=== PATIENT | female | born 1935 | race Caucasian/White ===

== ENCOUNTER 2016-10-20 06:52 | Emergency (ER) | payer MEDICARE, BC ==
[2016-10-20 07:26] VITALS: BP 123/79
[2016-10-20] MEDS ORDERED: predniSONE TAB* 20 MG PO ONE (07:28)
--- NOTE | 2016-10-20 08:23 | ED ---
pedro luis Quinonez Timothy, scribed for Jeffery Cyr MD on 10/20/16 at 0719 . Skin Complaint - HPI Summary HPI Summary: Mehreen Alan is an 81 yo female presenting to [facility] with diffuse pruritic rash since 219910/19/16 and feels like it is a result of the augmentin course she is taking and has been taking it TID for the past 10 days. She states she had difficulty sleeping and is nauseous, but denies any SOB. Her MHx includes Afib, ulcer, arthritis, osteopenia, bursitis bilateral hips and shoulder, hepatitis as a child, pernicious anemia, MRSA. She is allergic to tylenol, scopolamine, molds, and has hay fever. - History of Current Complaint Chief Complaint: EDAllergicReaction Time Seen by Provider: 10/20/16 07:18 Stated Complaint: POSS ALLERGIC REACTION Hx Obtained From: Patient Onset/Duration: Started Hours Ago, Still Present Skin Exposure Onset/Duration: Hours Ago Timing: Constant Onset Severity: Moderate Current Severity: Moderate Pain Intensity: 0 Pain Scale Used: 0-10 Numeric Skin Location: Diffuse Character: Pruritus, Hives Associated Signs & Symptoms: Nausea - Allergy/Home Medications Allergies/Adverse Reactions: Allergies Allergy/AdvReac Type Severity Reaction Status Date / Time Scopolamine Allergy Intermediate Altered Verified 07/01/15 08:37 Mental Status Procaine [From Novocain] Allergy Unknown Unknown Verified 07/01/15 08:37 Reaction Details Acetaminophen [From Tylenol] Allergy Nausea Verified 04/11/15 10:35 PMH/Surg Hx/FS Hx/Imm Hx Endocrine/Hematology History: Reports: Hx Anemia - PERNICIOUS DX 1981 Denies: Hx Diabetes, Hx Thyroid Disease Cardiovascular History: Reports: Other Cardiovascular Problems/Disorders - AFIB WITH EXCESSIVE CAFFEINE Denies: Hx Congestive Heart Failure, Hx Hypertension Respiratory History: Denies: Hx Asthma, Hx Chronic Obstructive Pulmonary Disease (COPD) GI History: Reports: Hx Ulcer - no antinflamatories, only 1 aleve per day History: Denies: Hx Renal Disease Musculoskeletal History: Reports: Hx Arthritis, Hx Bursitis - HX BILAT HIPS AND SHOULDER, Hx Osteoporosis - OSTEOPENIA Sensory History: Reports: Hx Cataracts - BILAT, Hx Contacts or Glasses - GLASSES , Hx Hearing Aid - BILAT Opthamlomology History: Reports: Hx Cataracts - BILAT, Hx Contacts or Glasses - GLASSES - Surgical History Surgery Procedure, Year, and Place: TONSILLECTOMY A CHILD Hx Anesthesia Reactions: No Infectious Disease History: Reports: Hx Hepatitis - as achild, Hx of Known/ Suspected MRSA Denies: Hx Clostridium Difficile, Hx Human Immunodeficiency Virus (HIV), Hx Shingles, Hx Tuberculosis, Hx Known/Suspected VRE, Hx Known/Suspected VRSA, History Other Infectious Disease, Traveled Outside the [place] in Last 30 Days - Family History Known Family History: Positive: Cardiac Disease, Hypertension, Other - breast CA - Social History Alcohol Use: Rare Substance Use Type: Reports: None Smoking Status (MU): Former Smoker Type: Cigarettes Length of Time of Smoking/Using Tobacco: 15 years Have You Smoked in the Last Year: No Review of Systems Constitutional: Negative Eyes: Negative ENT: Negative Cardiovascular: Negative Respiratory: Negative Gastrointestinal: Negative Genitourinary: Negative Musculoskeletal: Negative Positive: Rash - diffuse, pruritic Neurological: Negative Psychological: Normal All Other Systems Reviewed And Are Negative: Yes Physical Exam - Summary Physical Exam Summary: The patient is well-nourished in no acute distress and in no acute pain. The skin is warm and dry and skin color reflects adequate perfusion. Diffuse macular rash on her trunk, arms bilaterally, looks to be hives. HEENT: The head is normocephalic and atraumatic. The pupils are equal and reactive. The conjunctivae are clear and without drainage. Tosis of the left eye. Nares are patent and without drainage. Mouth reveals moist mucous membranes and the throat is without erythema and exudate. The external ears are intact. The ear canals are patent and without drainage. The tympanic membranes are intact. Neck is supple with full range of motion and non-tender. There are no carotid bruits. There is no neck vein distension. No stridor. Respiratory: Chest is non-tender. Lungs are clear to auscultation and breath sounds are symmetrical and equal. no rales, rhonci or wheezes. Cardiovascular: Hear is regular rate and rhythm. There is no murmur or rub auscultated. There is no peripheral edema and pulses are symmetrical and equal. Abdomen: The abdomen is soft and non-tender. There are normal bowel sounds heard in all four quadrants and there is no organomegaly palpated. Musculoskeletal: There is no back pain noted. Extremities are non-tender with full range of motion. There is good capillary refill. There is no peripheral edema or calf tenderness elicited. Neurological: Patient is alert and oriented to person, place and time. The patient has symmetrical motor strength in all four extremities. Cranial nerves are grossly intact. Deep tendon reflexes are symmetrical and equal in all four extremities. Psychiatric: The patient has an appropriate affect and does not exhibit any anxiety or depression. Triage Information Reviewed: Yes Vital Signs On Initial Exam: Initial Vital Signs Temp 98.4 F 10/20/16 07:15 Pulse 84 10/20/16 07:15 Resp 18 10/20/16 07:15 BP 123/79 10/20/16 07:15 Pulse Ox 98 10/20/16 07:15 Vital Signs Reviewed: Yes Diagnostics - Vital Signs Vital Signs Temp Pulse Resp BP Pulse Ox 10/20/16 07:40 98.4 F 82 18 123/79 10/20/16 07:15 98.4 F 84 18 123/79 98 - Laboratory Lab Statement: Any lab studies that have been ordered have been reviewed, and results considered in the medical decision making process. Re-Evaluation - Re-Evaluation First Eval Re-Evaluation Time: 07:30 Change: Unchanged Comment: Pt was given additional recommendations for treatment, as well as advised which medications she should avoid in the future. Course/Dx - Course Assessment/Plan: Mehreen Alan is an 81 yo female presenting to [facility] with a diffuse pruritic rash since 219910/19/16, accompanied by nausea. After clinical examination, she will be discharged home with allergic reaction and appropriate instructions, including a recommendation for domeboro soaks and oatmeal-based soap. - Differential Diagnoses - Skin Complaint Differential Diagnoses: Allergic Reaction - Diagnoses Provider Diagnoses: Allergic reaction caused by a drug Discharge - Discharge Plan Condition: Stable Disposition: HOME Prescriptions: predniSONE TAB* [Deltasone TAB*] 60 mg PO DAILY #12 tab Patient Education Materials: Antibiotic Medication Allergy (ED), Prednisone ( By mouth) Referrals: Citlaly Simmons MD [Primary Care Provider] - 2 Days Additional Instructions: Please follow up with your primary care physician regarding your visit to the emergency department today. It is advised that you avoid amoxicillin in the future. You will not be able to use pepcid due to its effect on your heart. To help relieve your symptoms, we recommend you obtain some domeboro soaks, which are over the counter. Additionally, an oatmeal-based soap may help to alleviate the itching you are experiencing. Return to the emergency department with any new or recurring symptoms The documentation as recorded by the pedro luis chris Timothy accurately reflects the service I personally performed and the decisions made by me, Jeffery Cyr MD.
== END 2016-10-20 07:40 | disposition home or self-care (01) ==
LOC: ED 06:52
DX: L27.0 Generalized skin eruption due to drugs and medicaments taken internally (principal); T36.0X5A Adverse effect of penicillins, initial encounter; X58.XXXA Exposure to other specified factors, initial encounter; Z88.8 Allergy status to other drugs, medicaments and biological substances; I48.0 Paroxysmal atrial fibrillation; Z87.891 Personal history of nicotine dependence; Z86.14 Personal history of Methicillin resistant Staphylococcus aureus infection
CPT/HCPCS: 99282; J7512

== ENCOUNTER 2017-01-25 14:48 | Emergency (ER) | payer MEDICARE, BC ==
[2017-01-25 14:54] VITALS: BP 145/76
--- NOTE | 2017-01-25 16:17 | UC ---
Lola Quinonez Alfonso, scribed for Guido Chaudhary MD on 01/25/17 at 1517 . General HPI - HPI Summary HPI Summary: This patient is an 81 year old F presenting to [facility] with a chief complaint of feeling lousy since one week ago. She states I am wondering if I got a UTI because of how I am feeling. The patient rates the dull pain 1/10 in severity. Symptoms aggravated and alleviated by nothing. Patient reports tiredness, weakness, dizziness (felling off balance), and abdominal discomfort. Patient denies sore throat, dysuria, difficulty in speech, neurological deficits, blood in the stool, and bowel symptoms. She lives at [facility]. She denies taking blood thinning medication. She states this is the worse time of the year for me for allergies. 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 She denies any abdominal PSHx. - History of Current Complaint Chief Complaint: UCGU Stated Complaint: UTI Time Seen by Provider: 01/25/17 15:05 Hx Obtained From: Patient Onset/Duration: Sudden Onset, Lasting Weeks - 1, Still Present Timing: Constant Onset Severity: Mild Current Severity: Mild Pain Intensity: 1 - /10 Character: Dull Aggravating: Nothing. Alleviating: Nothing. Associated Signs & Symptoms: Positive: Other - Patient reports tiredness, weakness, dizziness (felling off balance), and abdominal discomfort. Patient denies sore throat, dysuria, difficulty in speech, neurological deficits, blood in the stool, and bowel symptoms. 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 (10-12 years)" - Surgical History Surgical History: Yes Surgery Procedure, Year, and Place: TONSILLECTOMY A CHILD - Family History Known Family History: Positive: Cardiac Disease, Hypertension, Other - breast CA - Social History Alcohol Use: Rare Substance Use Type: None Smoking Status (MU): Former Smoker Type: Cigarettes Amount Used/How Often: 1ppd Length of Time of Smoking/Using Tobacco: 15 years Have You Smoked in the Last Year: No When Did the Patient Quit Smoking/Using Tobacco: 38 years ago - Immunization History Most Recent Influenza Vaccination: 03/30 Most Recent Pneumonia Vaccination: UTD Review of Systems ENT: Other - Negative sore throat. Gastrointestinal: Abdominal Pain - discomfort, Other - Negative blood in the stool, and bowel symptoms Genitourinary: Other - Negative dysuria Musculoskeletal: Other: - Positive "feeling lousy," tiredness, weakness, dizziness (felling off balance); negative difficulty in speech, neurological deficits All Other Systems Reviewed And Are Negative: Yes Physical Exam Triage Information Reviewed: Yes Appearance: Well-Appearing, No Pain Distress Vital Signs: Initial Vital Signs Temp 98.2 F 01/25/17 14:51 Pulse 72 01/25/17 14:51 Resp 18 01/25/17 14:51 BP 145/76 01/25/17 14:51 Pulse Ox 100 01/25/17 14:51 Vital Signs Reviewed: Yes ENT: Positive: Other: - Hearing aids Neck: Positive: Supple, Nontender Respiratory: Positive: Other: - CTA, breath sounds present Cardiovascular: Positive: RRR Abdomen Description: Positive: Soft, Other: - Minimal suprapubic discomfort Bowel Sounds: Positive: Present Musculoskeletal Exam: Normal Musculoskeletal: Positive: Strength Intact Neurological: Positive: Other: - sensory/motor intact, A&O x3, Left-sided Facial droop and left eyelid lags behind the right eyelid, consistent with a history of bells palsy. Psychological: Positive: Age Appropriate Behavior Skin: Positive: Other - warm, color reflects adequate perfusion, dry Course/Dx - Course Course Of Treatment: MEDICATIONS REVIEWED. PATIENT HAS IVAN'S PALSY BUT, NO NEW NEUROLOGIC DEFICIT. WE DISCUSSED CVA A POSSINBLE CAUSE FOR BEING OFF BALANCE. PATIENT DENIES C/O CVA. AT THIS TIME, WILL TREAT WITH BACTRIM FOR PYURIA. WE DISCUSSED GETTING SEEN AGAIN AND RE EVALUATED IF HER SX WORSENED OR DID NOT IMPROVE. - Differential Dx - Multi-Symptom Provider Diagnoses: UTI, DIZZINESS, HYPERTENSION Discharge - Discharge Plan Condition: Stable Disposition: HOME Prescriptions: Sulfamethox/Trimethoprim DS* [Bactrim DS 800/160 TAB*] 1 tab PO BID #14 tab Patient Education Materials: Urinary Tract Infection in Women (ED), Hypertension (ED), Dizziness (ED) Referrals: Citlaly Simmons MD [Medical Doctor] - Additional Instructions: FOLLOW UP WITH YOUR DOCTOR SCHEDULED 02/06/17 SCHEDULED TO FOLLOW UP FOR YOUR SYMPTOMS TODAY AND FOR YOUR HYPERTENSION. GO TO THE EMERGENCY DEPARTMENT FOR ANY WORSENING OF YOUR CONDITION; WEAKNESS, NUMBNESS, FEVER, YOU FEEL ILL OR QUESTIONS OR CONCERNS. The documentation as recorded by the Lola chris Alfonso accurately reflects the service I personally performed and the decisions made by me, Guido Chaudhary MD.
== END 2017-01-25 15:42 | disposition home or self-care (01) ==
LOC: UCEAST 14:48
DX: N39.0 Urinary tract infection, site not specified (principal); R42 Dizziness and giddiness; R53.83 Other fatigue; I10 Essential (primary) hypertension; K57.90 Diverticulosis of intestine, part unspecified, without perforation or abscess without bleeding; Z88.6 Allergy status to analgesic agent; Z88.4 Allergy status to anesthetic agent; Z88.1 Allergy status to other antibiotic agents; Z87.891 Personal history of nicotine dependence
CPT/HCPCS: 81003; 87086; 99212; G0463

== ENCOUNTER 2017-01-29 10:58 | Emergency (ER) | payer MEDICARE, BC ==
[2017-01-29 12:45] LABS: Urine Bacteria Absent (Absent); Urine Bilirubin Negative (Negative); Urine Glucose Negative (Negative); Urine Nitrite Negative (Negative)
[2017-01-29] MEDS ORDERED: Meclizine TAB* 12.5 MG PO ONE (13:04)
[2017-01-29] MEDS ORDERED: NS 0.9% 1000 ML* 1,000 ML IV ONE (13:04)
--- NOTE | 2017-01-29 13:41 | RAD ---
HISTORY: Weakness, history of Michelle's palsy, balance disorder COMPARISONS: None TECHNIQUE: Multiple contiguous axial CT scans were obtained of the head without intravenous contrast. FINDINGS: HEMORRHAGE/INFARCT: There is no hemorrhage or acute infarct. MASSES/SHIFT: There is no mass or shift. EXTRA-AXIAL SPACES: There are no extra-axial fluid collections. SULCI AND VENTRICLES: The sulci and ventricles are normal in size and position for the patient's stated age. CEREBRUM: There is mild hypoattenuation of the periventricular and subcortical white matter. BRAINSTEM: There are no focal parenchymal abnormalities. CEREBELLUM: There are no focal parenchymal abnormalities. VESSELS: The vessels are grossly normal. PARANASAL SINUSES: The paranasal sinuses are clear. ORBITS: The orbits are unremarkable. BONES AND SOFT TISSUE: No bone or soft tissue abnormalities are noted. OTHER: None IMPRESSION: NO ACUTE INTRACRANIAL PATHOLOGY. MILD CHRONIC SMALL VESSEL ISCHEMIC CHANGES
[2017-01-29 13:47] LABS: Hematocrit 41 % (35-47); Hemoglobin 13.7 g/dl (12.0-16.0); Mean Corpuscular HGB Conc 33 g/dl (31-36); Mean Corpuscular Hemoglobin 29 pg (27-31); Mean Corpuscular Volume 87 fL (80-97); Mean Platelet Volume 9 um3 (7.4-10.4); Red Blood Count 4.75 10^6/ul (4.0-5.4); Red Cell Distribution Width 14 % (10.5-15); White Blood Count 4.2 10^3/ul (3.5-10.8)
[2017-01-29 13:59] LABS: BUN/Creatinine Ratio 8.3 (8-20); C Reactive Protein 1.79 mg/L (< 5.00); Calcium 9.2 mg/dL (8.6-10.3); EGFR African American 71.6 (>60); EGFR Non-African American 55.6 (>60); Globulin 2.7 g/dL (2-4); Potassium 4.5 mmol/L (3.5-5.0); Total Bilirubin 0.8 mg/dL (0.2-1.0); Total Protein 6.7 g/dL (6.4-8.9)
--- NOTE | 2017-01-29 14:18 | RAD ---
HISTORY: Weakness COMPARISONS: None VIEWS: 4: Frontal dual-energy and lateral views of the chest. FINDINGS: CARDIOMEDIASTINAL SILHOUETTE: The cardiomediastinal silhouette is normal. JEAN: The jean are normal. PLEURA: The costophrenic angles are sharp. No pleural abnormalities are noted. LUNG PARENCHYMA: The lungs are clear. ABDOMEN: The upper abdomen is clear. There is no subphrenic gas. BONES AND SOFT TISSUES: No bone or soft tissue abnormalities are noted. OTHER: None. IMPRESSION: NO ACTIVE CARDIOPULMONARY DISEASE.
[2017-01-29 14:30] LABS: TSH (Thyroid Stimulating Horm) 2.11 mcIU/mL (0.34-5.60)
[2017-01-29 18:02] VITALS: BP 136/61
--- NOTE | 2017-01-30 18:20 | ED ---
Cuong Quinonez Rebecca, scribed for Finn Martin MD on 01/29/17 at 1406 . Dizziness - HPI Summary HPI Summary: Pt is a 81 yo female presenting to the ED c/o of vertigo and lightheadedness. She is currently switching from her previous family physician over to a Dr. June. At [facility] 4 days ago she was diagnosed with a UTI, and advised to return 2 days later if Sx still persist. Pt called and claims she didnt feel like her symptoms matched her diagnosis. So, the nurse there told her to be seen at the ED. Her Sx include lightheadedness, PADRON of 3-4/10 currently, increased gas, generalized weakness, vertigo which causes her to sway to her right, productive cough, chronic edema (her sider gave her compressions to wear which she currently has on today for the first time), and a subjective fever with chills. Denies any chest pain, SOB, and difficulty swallowing. 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 She is currently taking Bactrim. Weightlifts twice a week. Pt denies smoking, drinking, or taking any drugs. - History Of Current Complaint Chief Complaint: EDGeneral Stated Complaint: NAUSEA,OFF BALANCE,HEADACHE Time Seen by Provider: 01/29/17 12:51 Hx Obtained From: Patient Onset/Duration: Still Present Timing: Days - Was seen by [facility] 4 days ago Character: Lightheaded, Weak, Dizzy Aggravating Factor(s): Nothing Alleviating Factor(s): Nothing Associated Signs And Symptoms: Positive: Fever - subjective fever, Chills, Other : - Increased gas, productive cough with phlegm, PADRON, chronic edema NEGATIVE: difficulty swallowing. Negative: Chest Pain, SOB - Allergies/Home Medications Allergies/Adverse Reactions: Allergies Allergy/AdvReac Type Severity Reaction Status Date / Time Amoxicillin Allergy Intermediate Hives Verified 01/29/17 11:02 Scopolamine Allergy Intermediate Altered Verified 01/29/17 11:02 Mental Status Acetaminophen [From Tylenol] Allergy Vomiting Verified 01/29/17 11:02 Procaine [From Novocain] AdvReac Mild Unknown Verified 01/29/17 11:02 Reaction Details PMH/Surg Hx/FS Hx/Imm Hx Endocrine/Hematology History: Reports: Hx Anemia - PERNICIOUS DX 1981 Denies: Hx Diabetes, Hx Thyroid Disease Cardiovascular History: Reports: Other Cardiovascular Problems/Disorders - AFIB WITH EXCESSIVE CAFFEINE Denies: Hx Congestive Heart Failure, Hx Hypertension Respiratory History: Denies: Hx Asthma, Hx Chronic Obstructive Pulmonary Disease (COPD) GI History: Reports: Hx Ulcer History: Denies: Hx Renal Disease Musculoskeletal History: Reports: Hx Arthritis, Hx Bursitis - HX BILAT HIPS AND SHOULDER, Hx Osteoporosis - OSTEOPENIA Sensory History: Reports: Hx Cataracts - BILAT, Hx Contacts or Glasses - GLASSES , Hx Hearing Aid - BILAT Opthamlomology History: Reports: Hx Cataracts - BILAT, Hx Contacts or Glasses - GLASSES - Surgical History Surgery Procedure, Year, and Place: TONSILLECTOMY A CHILD Hx Anesthesia Reactions: No Infectious Disease History: No Infectious Disease History: Reports: Hx Hepatitis - as a child, Hx of Known/ Suspected MRSA - pt does not recall where Denies: Hx Clostridium Difficile, Hx Human Immunodeficiency Virus (HIV), Hx Shingles, Hx Tuberculosis, Hx Known/Suspected VRE, Hx Known/Suspected VRSA, History Other Infectious Disease, Traveled Outside the [place] in Last 30 Days - Family History Known Family History: Positive: Cardiac Disease, Hypertension, Other - breast CA - Social History Alcohol Use: None Substance Use Type: Reports: None Smoking Status (MU): Former Smoker Type: Cigarettes Amount Used/How Often: 1ppd Length of Time of Smoking/Using Tobacco: 15 years Have You Smoked in the Last Year: No Review of Systems Positive: Fever - Subjective, Chills Positive: Other - NEGATIVE: difficulty swallowing Negative: Chest Pain Positive: Cough - Productive cough with phlegm. Negative: Shortness Of Breath Positive: Other - Increased gas Positive: Edema - Chronic bilateral edema Neurological: Other - Lightheadedness, vertigo Positive: Headache, Weakness - generalized All Other Systems Reviewed And Are Negative: Yes Physical Exam - Summary Physical Exam Summary: VITAL SIGNS: Reviewed. GENERAL: ~Patient is a well-developed and nourished female who is lying comfortable in the stretcher. ~Patient is not in any acute respiratory distress. HEAD AND FACE: No signs of trauma. ~No ecchymosis, hematomas or skull depressions. No sinus tenderness. EYES: PERRLA, EOMI x 2, No injected conjunctiva, no nystagmus. EARS: Hearing grossly intact. Ear canals and tympanic membranes are within normal limits. MOUTH: Oropharynx within normal limits. NECK: Supple, trachea is midline, no adenopathy, no JVD, no carotid bruit, no c- spine tenderness, neck with full ROM. CHEST: Symmetric, no tenderness at palpation LUNGS: Clear to auscultation bilaterally. No wheezing or crackles. CVS: Regular rate and rhythm, S1 and S2 present, no murmurs or gallops appreciated. ABDOMEN: Soft, non-tender. No signs of distention. No rebound no guarding, and no masses palpated. Bowel sounds are normal. EXTREMITIES: FROM in all major joints, no edema, no cyanosis or clubbing. NEURO: Alert and oriented x 3. No acute neurological deficits. Speech is normal and follows commands. Chronic facial drooping secondary to Guillory Hunts syndrome or Lyme Disease. SKIN: Dry and warm Triage Information Reviewed: Yes Vital Signs On Initial Exam: Initial Vitals Temp Pulse Resp BP Pulse Ox 97.5 F 67 16 141/94 99 01/29/17 11:02 01/29/17 11:02 01/29/17 11:02 01/29/17 11:02 01/29/17 11:02 Vital Signs Reviewed: Yes - [place] Coma Scale Best Eye Response: 4 - Spontaneous Best Motor Response: 6 - Obeys Commands Best Verbal Response: 5 - Oriented Coma Scale Total: 15 Diagnostics - Vital Signs Vital Signs Temp Pulse Resp BP Pulse Ox 01/29/17 13:02 97.5 F 70 16 148/74 100 01/29/17 13:00 69 13 148/74 100 01/29/17 12:58 162/78 01/29/17 11:02 97.5 F 67 16 141/94 99 - Laboratory Lab Results: Lab Results 01/29/17 Range/Units 12:05 Urine Color Yellow Urine Appearance Clear Urine pH 7.0 (5-9) Ur Specific [place] 1.004 L (1.010-1.030) Urine Protein Negative (Negative) Urine Ketones Negative (Negative) Urine Blood Negative (Negative) Urine Nitrate Negative (Negative) Urine Bilirubin Negative (Negative) Urine Urobilinogen Negative (Negative) Ur Leukocyte Esterase Trace H (Negative) Urine WBC (Auto) Absent (Absent) Urine RBC (Auto) Trace(0-2/hpf) (Absent) Ur Squamous Epith Cells Present H (Absent) Ur Renal Epithelial Cell Present H (Absent) Urine Bacteria Absent (Absent) Urine Glucose Negative (Negative) Result Diagrams: 01/29/17 13:35 01/29/17 13:35 Lab Statement: Any lab studies that have been ordered have been reviewed, and results considered in the medical decision making process. - Radiology CXR Xray Interpretation: No Acute Changes - NO ACTIVE CARDIOPULMONARY DISEASE. Radiology Interpretation Completed By: Radiologist - CT Brain CT CT Interpretation: No Acute Changes - NO ACUTE INTRACRANIAL PATHOLOGY. MILD CHRONIC SMALL VESSEL ISCHEMIC CHANGES CT Interpretation Completed By: Radiologist - EKG 1336 Cardiac Rate: NL - 62 bpm EKG Rhythm: Sinus Rhythm ST Segment: Normal EKG Interpretation: No ST elevation Dizzy Course/Dx - Course Assessment/Plan: Pt is a 81 yo female presenting to the ED c/o of vertigo and lightheadedness. She is currently switching from her previous family physician over to a Dr. June. At [facility] 4 days ago she was diagnosed with a UTI , and advised to return 2 days later if Sx still persist. Pt called and claims she didnt feel like her symptoms matched her diagnosis. So, the nurse there told her to be seen at the ED. Her Sx include lightheadedness, PADRON of 3-4/10 currently, increased gas, generalized weakness, vertigo which causes her to sway to her right, productive cough, chronic edema (her sider gave her compressions to wear which she currently has on today for the first time), and a subjective fever with chills. Denies any chest pain, SOB, and difficulty swallowing. 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 She is currently taking Bactrim. Weightlifts twice a week. Pt denies smoking, drinking, or taking any drugs. Test results w/o any significant abnormality except for sodium of 129, creatinine of 0.96, glucose of 111. UA contaminated therefore it will be sent for urine cultures and the results of urine cultures with be followed up by PCP. CXR reveals NO ACTIVE CARDIOPULMONARY DISEASE and Brain CT reveals NO ACUTE INTRACRANIAL PATHOLOGY. MILD CHRONIC SMALL VESSEL ISCHEMIC CHANGES. Seeing as all the test results are negative I will D/C to home to follow up with PCP. Pt will be given Rx for Meclizine for dizziness. She is hemodynamically stable and A&Ox3. - Diagnoses Differential Diagnosis/HQI/PQRI: CVA, Meniere's Disease, Transient Ischemic Attack Provider Diagnoses: Dizziness, Vertigo Discharge - Discharge Plan Condition: Stable Disposition: HOME Prescriptions: Meclizine TAB* [Antivert 12.5 TAB*] 25 mg PO TID PRN #20 tab PRN Reason: Dizziness Patient Education Materials: Dizziness (ED) Referrals: Kate June MD [Primary Care Provider] - 3 Days The documentation as recorded by the Cuong chris Rebecca accurately reflects the service I personally performed and the decisions made by Mario gifford Walter, MD.
== END 2017-01-29 18:12 | disposition home or self-care (01) ==
LOC: ED 10:58
DX: R50.9 Fever, unspecified (principal); R42 Dizziness and giddiness
CPT/HCPCS: 36415; 70450; 71020; 80053; 81003; 81015; 82550; 83605; 83735; 83880; 84443; 84484; 85025; 85730; 86140; 87086; 93005; 99284; A9270-GY

== ENCOUNTER 2017-12-17 06:55 | Inpatient (IN) | payer MEDICARE, BC ==
--- NOTE | 2017-12-07 14:41 | HP ---
HISTORY AND PHYSICAL: DATE OF ADMISSION: 12/17/17 ATTENDING PROVIDER: Dr. Up * (DICTATED BY EBONIE YOUSSEF) HISTORY OF PRESENT ILLNESS: Ms. Alan is an 82-year-old female who reports acute- on-chronic left hip pain. Her left groin pain has been present on and off for years. She states that the pain has been 6/10 recently, severe, constant, and worsening over the last few months. Has difficulty ambulating more than a block without severe pain. She has difficulty sleeping due to the pain. Flexing of the hip, internally and externally rotating of the hip cause severe pain. She feels unsteady and feels like she could fall. She has failed anti-inflammatories, formal physical therapy, homeopathic anti-inflammatories, and the use of a cane without relief of pain. She would like to undergo a left total hip arthroplasty. PAST MEDICAL HISTORY: 1. Transient atrial fibrillation. 2. Diverticulitis. 3. Osteoarthritis. 4. GERD. 5. Pernicious anemia. 6. Vertigo. 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 8. Irritable bowel syndrome. 9. Gastritis. 10. UTI, recurrent. 11. Peripheral neuropathy as a result of the pernicious anemia, reversed to an extent, now only involving numbness and tingling in the tips of her fingers and toes. 12. Hepatitis, resolved. PAST SURGICAL HISTORY: 1. T and A. 2. Cataract excision, bilateral. MEDICATIONS: 1. Calcium 600 plus D. 2. Metamucil. 3. Omeprazole 20 mg. 4. Cyanocobalamin 1000 mcg/mL. 5. Multivitamin. 6. Azelastine hydrochloride 137 mcg per spray. 7. Hyoscyamine sulfate 0.125 mg. 8. 50 mg. 9. Refresh Liquigel 1%. 10. Culturelle. 11. Huperzine Serrate A. ALLERGIES: 1. GLUTEN and WHEAT sensitivity, causes diarrhea. 2. TYLENOL causes vomiting. 3. ANTIHISTAMINES cause atrial fibrillation. 4. AMOXICILLIN causes hives. 5. All PENICILLINS. 6. NOVOCAINE causes dizziness. 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 She lives in [facility]. Normally very active and normally an independent ambulator with a cane when she has her pain. She is left hand dominant. Has 1 to 2 drinks a year. Denies any smoking. Denies any drug use. REVIEW OF SYSTEMS: General: The patient denies any fevers, chills, or night sweats. No known anesthesia problems. HEENT: Denies any headaches, lightheadedness, or syncopal episode. Cardiothoracic: Denies any chest pain, heart palpitations, or edema. Pulmonary: Denies any shortness of breath with exertion, chronic cough. GI: Admits to diarrhea when she eats GLUTEN. Denies any nausea, vomiting, or constipation. : Denies any nocturia, urinary frequency or urgency. MSK: Admits to chronic left hip pain. Denies any chronic back pain. Neuro: Admits to numbness and paresthesias of the tips of her fingers and toes. Integument: Denies any abrasions, lesions, rashes, or open sores. PHYSICAL EXAMINATION GENERAL: The patient is alert and oriented, in no acute distress. Appropriate mood and affect. HEENT: Normocephalic and atraumatic. Hearing and vision are grossly intact. PULMONARY: Lungs are clear to auscultation bilaterally with no wheezes, rales, or rhonchi. CARDIO: Regular rate and rhythm. Normal S1 and S2. No appreciable S3 or S4. No murmurs, rubs, or gallops. MUSCULOSKELETAL: Left lower extremity, left hip: Inspection of the left hip reveals no erythema or ecchymosis. Skin is warm, dry, and intact. She has range of motion of 100 degrees of flexion with pain, 5 degrees of internal rotation with pain, and 10 degrees of external rotation with pain. She has a positive log roll with pain. She is neurovascularly intact distally and has a 2 + dorsalis pedis pulse. IMPRESSION: Left hip osteoarthritis. PLAN: Ms. Alan is an 82-year-old female scheduled for a left total hip arthroplasty on 12/17/17. Informed consent was obtained from the patient. She understands the risks of surgery to include but are not limited to bleeding, infection, damage to nearby structures, continued pain, need for further surgery , intraoperative fracture, nerve palsy, hardware failure or loosening, dislocation, leg length discrepancy, stroke, heart attack, blood clot, and . She wishes to proceed. We will have her follow up 10 to 14 days status post surgery with Dr. Up for suture removal. EBONIE YOUSSEF [id number]/[facility] #: [id number] SARA
[~2017-12-17 06:55] MED LIST: Famotidine IV* 10 MG/ML 2 ML (20 mg) IV ONE
[2017-12-17] MEDS ORDERED: Clindamycin 900 MG IVPREMIX(* 900 MG/50 ML SDV IV ONE (07:01)
[2017-12-17] MEDS ORDERED: Famotidine IV* 10 MG/ML 2 ML (20 mg) ONE (07:01)
[2017-12-17] MEDS ORDERED: Buffered Lidocaine 0.9% SYRIN* 5 ML/SYR SYRINGE ONE (07:02)
[2017-12-17] MEDS ORDERED: fentaNYL* 50 MCG/ML 2 ML VIAL (100 MCG VIAL) ONE ×2 (08:23→11:03)
[2017-12-17] MEDS ORDERED: Midazolam* 1 MG/ML 2 ML VIAL (2 MG) ONE (08:23)
[2017-12-17] MEDS ORDERED: KETAMINE HCL* 50 MG/ML 10 ML VIAL ONE (09:30)
[2017-12-17] MEDS ORDERED: Dexamethasone IV* 4 MG/ML 1 ML (4 MG) ONE (09:37)
[2017-12-17] MEDS ORDERED: Succinylcholine* 20 MG/ML 10 ML VIAL ONE (09:37)
[2017-12-17] MEDS ORDERED: Ondansetron INJ* 2 MG/ML VIAL ONE (09:37)
[2017-12-17] MEDS ORDERED: Ketorolac INJ* 30 MG/ML 1 ML VIAL ONE (09:37)
[2017-12-17] MEDS ORDERED: Propofol* 10 MG/ML 20 ML BTL IV PUSH ONE (09:37)
[2017-12-17] MEDS ORDERED: Lidocaine 2% PF * 5 ML VIAL ONE (09:38)
[2017-12-17] MEDS ORDERED: Bupivacaine 0.5% PF 10 ML VIAL INJ ONE (09:41)
[2017-12-17] MEDS ORDERED: Buffered Lidocaine 0.9% SYRIN* 5 ML/SYR SYRINGE INTRADERM ONE (10:32)
[2017-12-17] MEDS ORDERED: HYDROmorphone INJ* 0.5 MG/0.5 ML SYRINGE ONE ×3 (11:49→13:14)
[2017-12-17] MEDS ORDERED: Ondansetron INJ* 2 MG/ML VIAL IV PRN ×2 (11:57→13:03)
[2017-12-17] MEDS ORDERED: oxyCODONE TAB* 5 MG TAB PO PRN (11:57)
[2017-12-17] MEDS ORDERED: Naloxone* 0.4 MG/ML 1 ML VIAL IV PRN (11:57)
[2017-12-17] MEDS ORDERED: Gabapentin CAP(*) 100 MG PO ONE (11:59)
[2017-12-17] MEDS ORDERED: oxyCODONE/Acetamin 5/325 MG* TAB PO PRN ×2 (13:03)
[2017-12-17] MEDS ORDERED: Morphine VIAL* 4 MG/ML VIAL (1 ml vial) IV PRN (13:03)
[2017-12-17] MEDS ORDERED: Magnesium Hydroxide LIQ* 30 ML UDC PO PRN (13:03)
[2017-12-17] MEDS ORDERED: diPHENhydraMINE IV* 50 MG/ML 1 ml VIAL (BENADRYL) IV PRN (13:03)
[2017-12-17] MEDS ORDERED: Bisacodyl SUPP* 10 MG SUPP PR PRN (13:03)
[2017-12-17] MEDS ORDERED: oxyCODONE TAB* 5 MG TAB ONE (13:14)
--- NOTE | 2017-12-17 13:14 | RAD ---
INDICATION: Left hip replacement COMPARISON: Left hip radiograph November 03, 2017 TECHNIQUE: A single intraoperative AP view of the left hip was obtained. FINDINGS: The acetabular pole and femoral shaft component of the left hip prosthesis are anatomically aligned. Remaining visualized bones are intact and appropriately aligned. IMPRESSION: Anatomic alignment of left hip prostheses in the AP projection.
[2017-12-17] MEDS: HYDROmorphone INJ* 0.5 MG/0.5 ML SYRINGE IV PRN ×2 (13:16→13:36)
--- NOTE | 2017-12-17 13:43 | RAD ---
INDICATION: Left hip arthroplasty COMPARISON: Left hip December 17, 2017 TECHNIQUE: A single portable view the pelvis is obtained FINDINGS: There is completion of left hip arthroplasty. Both femoral and acetabular components appear well seated. There are no other interval changes of the bony pelvis. The SI joints and symphysis are intact IMPRESSION: LEFT HIP ARTHROPLASTY. THE PROSTHESIS APPEARS NORMALLY SEATED.
--- NOTE | 2017-12-17 13:45 | RAD ---
INDICATION: Left hip arthroplasty COMPARISON: Left hip December 17, 2017 TECHNIQUE: Portable AP and crosstable lateral imaging of the left performed FINDINGS: There is left hip arthroplasty. Both femoral and acetabular components appear well seated. There are soft tissue changes compatible with the recent surgery. IMPRESSION: THE LEFT HIP PROSTHESIS APPEARS NORMALLY SEATED.
[2017-12-17] MEDS ORDERED: Gabapentin CAP(*) 100 MG ONE (13:49)
[2017-12-17] MEDS ORDERED: Warfarin TAB(*) 6 MG PO ONE (17:00)
[2017-12-17] MEDS: oxyCODONE TAB* 5 MG TAB PO PRN (17:39)
[2017-12-17] MEDS: Clindamycin 600 MG IVPREMIX(* 600 MG/50 ML SDV IV SCH (18:16)
[2017-12-17] MEDS: Magnesium Hydroxide LIQ* 30 ML UDC PO SCH (20:02)
[2017-12-17] MEDS: Docusate CAP* 100 MG PO SCH (20:02)
--- NOTE | 2017-12-18 01:17 | CONS ---
CONSULTATION REPORT: DATE OF CONSULTATION: 12/17/17 CONSULTING PROVIDER: Dr. Soila Up. PRIMARY CARE PROVIDER: Dr. Kate June. ATTENDING PHYSICIAN: Dr. Yemi Van. REASON FOR CONSULTATION: Comanagement of comorbid medical conditions. HISTORY OF PRESENT ILLNESS: Ms. Alan is an 82-year-old female with a past medical history significant for atrial fibrillation, pernicious anemia, gastritis, recurrent UTIs, peripheral neuropathy, who is seen, status post total left hip arthroplasty due to failing outpatient conservative treatment for osteoarthritis of the hip. The patient is feeling somewhat sleepy when she is examined and feels lightheaded, but states this happens whenever she takes pain medication. The patient's pain is 3/10 at rest and 6/10 with movement. The patient denies any vertigo. The patient had 1 episode of vertigo last March, which was attributed to dehydration and resolved and has not recurred with adequate hydration. The patient recently had a urinary tract infection on her presurgical evaluation. She had pansensitive E. coli in her urine on and was treated with an unknown antibiotic, which finished last Thursday. The patient states on repeat urinalysis, she had persistent bacteria in her urine and was treated with another 3-day course of antibiotics, though the repeat culture grew nothing on 12/04/17. The patient states she has had 2 UTIs in the last 6 months and is unable to quantify how frequently they happened other than that, but states that they are recurrent. The patient has had no other recent symptoms. No nausea or vomiting. No falls. No sick contacts. The patient never had a history of blood clots. The patient has lost 4 pounds and she attributes this to lack of appetite due to taking tramadol. The patient had her most recent B12 injection 2 months ago and has persistent numbness and tingling in her hands and feet, but no other symptoms of peripheral neuropathy or B12 deficiency except for possibly somewhat decreased balance. PAST MEDICAL HISTORY: Transient atrial fibrillation, diverticulitis, osteoarthritis, GERD, pernicious anemia, vertigo, Michelle's palsy for 10 years believes to be due to Lucio Rodriguez syndrome or Lyme disease, irritable bowel syndrome, gastritis, recurrent UTIs, peripheral neuropathy, hepatitis due to infectious hepatitis likely hepatitis A. PAST SURGICAL HISTORY: Tonsillectomy and adenoidectomy when she was 3 years old ; cataract excision, bilateral. MEDICATIONS: 1. Vitamin B12 1000 mcg IM monthly. 2. Glycerin Refresh Optive drops 1 drop left eye t.i.d. as needed. 3. Astepro 0.15% nasal 1 spray both nares q.a.m. 4. Fluticasone 2 sprays both nares q.a.m. 5. Omeprazole 20 mg p.o. q.a.m. 6. Turmeric 500 mg p.o. b.i.d. 7. Metamucil 2 teaspoons p.o. b.i.d. 8. Culturelle probiotics 1 each p.o. q.a.m. 9. Hyoscyamine 0.125 mg p.o. as needed. 10. Caltrate 600 plus D 1 tab p.o. q.a.m. 11. Huperzine serrate 1 tab p.o. q.a.m. 12. Quercetin 600 mg p.o. q.a.m. 13. Tramadol 25 mg p.o. q.6 hours as needed. FAMILY HISTORY: The patient's mother of breast cancer. The patient has no other significant known past medical history. SOCIAL HISTORY: The patient lives alone. The patient is . The patient is a former smoker, approximately [id number] history of smoking. The patient drinks 1 to 2 drinks a year. 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 The patient lives in [facility]. The patient denies illicit drug use. The patient's surrogate decision maker is her son, Josh Sandoval. REVIEW OF SYSTEMS: A 14-point review of systems was reviewed and is negative except as above in the HPI. PHYSICAL EXAM: General: The patient is an 82-year-old female, who appears her stated age, has an obvious left-sided facial droop and is sitting in the bed, in no acute distress. HEENT: Head is normocephalic, atraumatic. Sclerae anicteric. No conjunctival injection. Nasal mucosa moist. Oral mucosa moist. No oropharyngeal erythema, discharge or exudate. Neck: Supple, nontender. No lymphadenopathy. No carotid bruit auscultated. No JVD. Vital Signs: Temperature 97.1, pulse rate 83, respiratory rate 16, oxygen saturation 99% on room air, blood pressure 107/50. Cardiac: Regular rate and rhythm. No clicks, murmurs, gallops or rubs. Pulses are 2+ in the bilateral dorsalis pedis, posterior tibialis and radial areas. Respiratory: Clear to auscultation bilaterally. No wheezes, rales or rhonchi. Good air exchange bilaterally. Abdomen: Soft, nontender, nondistended. Bowel sounds present and normoactive in all 4 quadrants. No hepatosplenomegaly. No abdominal bruits auscultated. No hepatojugular reflux. Genitourinary: No suprapubic or CVA tenderness. Hicks in place draining clear yellow urine. Skin: Clean, dry, and intact. No rash. Left him incision covered with bulky gauze dressing. Neuro: Cranial nerves II through XII intact except for obvious Michelle's palsy on the left side with non-wrinkling of the left side of the forehead with eyebrow raising. No other focal deficits. Alert and oriented x3. Psychiatric: Pleasant and cooperative. DIAGNOSTIC STUDIES/LAB DATA: Laboratory data preoperatively, white blood cell count 6.2, hemoglobin 12.9, hematocrit 38, platelet count 320, INR 0.89, APTT 31.9. Sodium 136, potassium 4.3, chloride 98, carbon dioxide 31, anion gap 7, BUN 8, creatinine 0.73, glucose 93, lactic acid 1.1, calcium 9.7, magnesium 2.0 , bilirubin 0.8, AST 16, ALT 15, alkaline phosphatase 1.8, protein 6.3, albumin 4.2, globulin 2.1, vitamin B12 of 938. ASSESSMENT/PLAN AND IMPRESSION: Ms. Alan is an 82-year-old female with a past medical history significant for transient atrial fibrillation, pernicious anemia , recurrent urinary tract infections, and peripheral neuropathy, who is status post left total hip replacement and has no complications at this time. 1. Status post left total hip replacement. Management per primary team. Pain control with narcotic pain medications should be limited due to the patient's poor reaction to them. The patient should have her hemoglobin and hematocrit monitored closely. The patient's most recent B12 level was high. The patient will not need another B12 injection for 2 more weeks. The patient's balance is impaired. She should have physical therapy and occupational therapy. 2. Transient atrial fibrillation, 1 episode. This is in the setting of large amount of coffee use. The patient still drinks one and a half cups of coffee a day. The patient will be monitored intermittently for regular heart rate. The patient currently has a regular heart rate and has no symptoms consistent with tachycardia such as palpitations, chest pain or shortness of breath. The patient will not be maintained on telemetry at this time. 3. Recurrent urinary tract infections. The patient was recently treated for urinary tract infection. The patient will be monitored for signs of urinary tract infection particularly with Hicks catheter inserted, which will be removed as soon as possible. 4. Gastroesophageal reflux disease, gastritis. Continue omeprazole. 5. Peripheral neuropathy, much improved. The patient does not take any medications for neuropathic pain. 6. DVT prophylaxis. Lovenox to warfarin as per primary team. 7. FEN. The patient is gluten intolerant. The patient will be maintained on a gluten-free diet while in the hospital to avoid gastrointestinal upset. The patient will have fluids per primary team. 8. Code status. The patient would like to be a full code with limited medical intervention as outlined in her MOLST form. The patient's wishes were clarified with her and her family. The patient was previously a DNR, but in conversation stated that she would like a trial of CPR if she thought she could return to her formal level of functioning. It was explained to the patient that this should be unknown at the time of initiating the CPR, but if she wanted CPR done at all, she would need a full code status and have her surrogate decision makers well informed on her wishes regards to life sustaining treatment. She understood and the MOLST was updated appropriately. 9. Disposition. Inpatient, disposition per primary team. TIME SPENT: Approximately 60 minutes were spent on this consultation, 30 of which was spent [id number] with the patient obtaining history and physical and discussing the treatment plan. This has been discussed with my attending, Dr. Yemi Van, and he is in agreement. Thank you for this consultation. EBONIE LOW [id number]/[facility] #: [id number] [email or web address]
[2017-12-18] MEDS: Clindamycin 600 MG IVPREMIX(* 600 MG/50 ML SDV IV SCH ×2 (02:40→10:44)
[2017-12-18] MEDS: oxyCODONE TAB* 5 MG TAB PO PRN ×5 (03:06→21:27)
[2017-12-18 05:48] LABS: Hematocrit 28 % (35-47); Hemoglobin 9.7 g/dl (12.0-16.0); Mean Platelet Volume 8.1 um3 (7.4-10.4); Platelet Count 288 10^3/ul (150-450)
[2017-12-18 05:54] LABS: INR 1.17 (0.77-1.02)
[2017-12-18 06:07] LABS: EGFR Non-African American 76.1 (>60)
--- NOTE | 2017-12-18 09:14 | PN ---
Progress Note - Progress Note Date of Service: 12/18/17 SOAP: Subjective: POD#1 s/p L ERI with Dr. Up on 12/17/17. Patient sitting in chair with son in room. She is excited about going home and restarting exercise at the gym. 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 Denies CP, SOB, calf pain, nausea/vomiting. Objective: Vital Signs Temp 98.6 F 12/18/17 07:28 Pulse 78 12/18/17 07:28 Resp 16 12/18/17 07:28 BP 105/37 12/18/17 07:28 Pulse Ox 96 12/18/17 07:28 Intake & Output 12/17/17 12/18/17 12/18/17 18:59 06:59 18:59 Intake Total 2610 465 200 Output Total 30 800 Balance 2580 -335 200 Weight 149 lb 3.2 oz Intake: IV Fluids 1950 105 ABX - CLINDAMYCIN 55 CLINDAMYCIN 900 MG 50 LR 1900 50 Oral 660 360 200 Output: Urine 0 Hicks 800 Residual 30 Hicks 16 Fr 30 Other: # Bowel Movements 0 Laboratory Results - last 24 hr 12/18/17 12/18/17 12/18/17 05:10 05:10 05:10 Hgb 9.7 L Hct 28 L Plt Count 288 MPV 8.1 INR (Anticoag Therapy) 1.17 H Sodium 136 Potassium 4.6 Chloride 101 Carbon Dioxide 32 Anion Gap 3 BUN 9 Creatinine 0.73 Est GFR ( Amer) 92.1 Est GFR (Non-Af Amer) 76.1 BUN/Creatinine Ratio 12.3 Glucose 158 H Calcium 8.5 L General: WN, WD, NAD LLE: Dressing C/D/I, incision without erythema, warmth, drainage, other sign of infection. +DF/PF. 2+ DP pulse. SITLT. Calf and thigh soft and non-tender. RLE: calf soft, nontender. Assessment: POD#1 s/p L ERI with Dr. Up on 12/17/17. Plan: - INR 1.17 after 6.0 mg coumadin yesterday, tonight 6 mg. - Continue PT/OT, progressing well - Pain well controlled, continue current meds - Plan to d/c to [facility] Sat/Sun when able - VSS today
[2017-12-18] MEDS: Magnesium Hydroxide LIQ* 30 ML UDC PO SCH ×2 (09:18→21:27)
[2017-12-18] MEDS: Vitamin THERAPEUTIC TAB PO SCH (09:19)
[2017-12-18] MEDS: Docusate CAP* 100 MG PO SCH ×2 (09:19→21:27)
[2017-12-18] MEDS ORDERED: Enoxaparin(*) 30 MG/0.3 ML SYR SUBCUT SCH (12:00)
--- NOTE | 2017-12-18 12:16 | OP ---
OPERATIVE REPORT: DATE OF OPERATION: 12/17/17 DATE OF : 33 SURGEON: Soila Up MD TRAFFIC WORKFORCE REPRESENTATIVE: EBONIE Escobedo Mr. Aquino did help throughout the procedure with preparation of the leg, wound retraction, manipulat ion of the hip, and wound closure. ANESTHESIOLOGIST: Maggei Pereyra MD ANESTHESIA: Spinal. PRE-OP DIAGNOSIS: Severe end-stage degenerative osteoarthritis of the left hip joint. POST-OP DIAGNOSIS: Severe end-stage degenerative osteoarthritis of the left hip joint. OPERATIVE PROCEDURE: Left total hip arthroplasty. INDICATIONS: Ms. Alan is an 82-year-old female with years of increasingly severe left hip pain. Sh e failed conservative treatment with antiinflammatories, pain medications, intraarticular injections, and physical therapy. She elected to undergo a left total hip arthroplasty due to continued pain an d decreased quality of life. Informed consent was obtained from the patient. She understood the ris ks of surgery included but were not limited to bleeding, infection, damage to nearby structures, cont inued pain, need for further surgery, intraoperative fracture, nerve palsy, hardware failure or loose ramesh, dislocation, leg length discrepancy, stroke, heart attack, blood clot, and . She wished t o proceed. COMPLICATIONS: None. ESTIMATED BLOOD LOSS: 300 cc. SPECIMENS: Femoral head and acetabular reaming sent to Pathology. HARDWARE USED: This is uncemented [place] total hip arthroplasty hardware. For the cup, a Tritanium cluster hole shell 50D. Two 6.5 cancellous bone screws were used, both of length 20 mm. For the li ner, an MDM cementless liner 38D. For the stem, an Accolade TMZF size 3 with a 132-degree neck angle . For the liner and head, an MDM polyethylene insert 22/38D/50. For the head, a 22 femoral head +0 length. INTRAOPERATIVE FINDINGS: Intraoperatively, the patient was noted to have severe arthritis of the hip with complete loss of cartilage along the femoral head and acetabulum. Significant osteopenia was n oted throughout the case. DESCRIPTION OF PROCEDURE: Ms. Alan was identified in the preanesthesia unit. Her left lower extrem ity was marked as the correct operative side. Informed consent was signed and placed in the chart. The patient was taken to the operating room and placed under spinal anesthesia. A Hicks catheter was placed. She was placed in the right lateral decubitus position on the peg board. All bony prominen judi were well padded. Left lower extremity was prepped and draped in the usual sterile fashion. Pre op time-out was made to correctly identify the patient's side and site. Appropriate perioperative an tibiotics were given within 1 hour of incision. A 12-cm posterior hip incision was made with a 10 blade and carried down through the lateral fascial layer. Lateral fascial layer was incised in line with the skin incision. A Charnley retractor was p laced. The piriformis and conjoint tendons were elevated off the posterior lateral femur with electr ocautery and tagged with #5 Ethibond. Next, the electrocautery was used to make a standard posterola teral capsular flap and this was also tagged with #5 Ethibond. The hip was carefully dislocated. Le sser troch to the center of the femoral head measured 62 mm. Oscillating saw was used to make the jenna ropriate femoral neck cut. The femoral head was carefully removed. The femur was retracted anterior ly. After appropriate placement of retractor, the acetabulum was easily visualized. Long-handled kn yudi was used to sharply remove any remaining labrum from the acetabular rim. The acetabulum was sequ entially reamed up to a size 49. A bleeding subchondral bone bed was obtained. Significant osteopen ia was noted. A size 49 trial acetabulum was placed in the acetabular cup and had excellent fit. Th e final implant chosen was a 50D Tritanium cluster hole shell. This was impacted into the acetabulum without difficulty. Good stability was obtained. Satisfactory anteversion and abduction angle were obtained. Two screws were placed in the superior posterior quadrant for extra stability. These wer e both of length 20 mm. A MDM cementless liner 38D was chosen and impacted into the acetabulum. Sta bility of the liner was checked and rechecked and noted to be stable. Next, attention was turned to preparation of the proximal femur. A canal finder was used to enter th e proximal femur. Proximal femur was sequentially broached up to a size 3. Size 3 broach had excell ent fit with satisfactory anteversion. A 132 neck trial was placed as well as a 22 head with +0. Le sser troch to the center of the femoral head was measured and measured 63 mm. The hip was reduced an d taken through a range of motion. The hip was stable in all positions. There was good soft tissue tension and appropriate leg lengths. The hip was carefully dislocated. All trials were removed. Fin al implant chosen was an Accolade TMZF size 3 with a 132-degree neck. The final implant was impacted into the femoral canal without difficulty. There was excellent stabil ity and appropriate anteversion. The 22 femoral head +0 was chosen as the final implant as well as t he MDM polyethylene 22/50D/38D. This was prepared and impacted on to the femoral neck. Lesser troch to the center of the femoral head measured 63 mm. The hip was reduced and taken through a range of motion. The hip was stable in all positions. There was good soft tissue tension and appropriate leg lengths. The hip was copiously irrigated with sterile saline. Previously tagged tendons and capsules were lam pproximated to the posterolateral femur through 2 trochanteric drill holes. The lateral fascial laye r was closed using interrupted #1 Vicryls. The rest of the incision was closed in a layered fashion u sing 0 and 2-0 Vicryls. Skin was closed using running 3-0 Monocryl and Dermabond. Sterile Adaptic, 4 x4s, and paper tape were used to cover the incision. The patient's anesthesia was reversed without difficulty. She was taken to the PACU in stable condit ion. Intended weightbearing will be weightbearing as tolerated with posterior hip precautions. Inte nded DVT prophylaxis will be Coumadin with a Lovenox bridge. [id number]/[facility] #: [id number]
--- NOTE | 2017-12-18 16:27 | PN ---
Subjective Date of Service: 12/18/17 Interval History: Patient is in good spirits and with pain 2/10 laying down, 5/10 sitting and 7-8/ 10 with movement. Patient denies CP, SOB, N/V, abdominal pain, diarrhea, dysuria , or other pain. Patient is working well with PT. Family History: Unchanged from Admission Social History: Unchanged from Admission Past Medical History: Unchanged from Admission Objective Active Medications: Bisacodyl (Dulcolax Supp*) 10 mg NC DAILY PRN PRN Reason: constipation Diphenhydramine HCl (Benadryl Iv*) 25 mg IV Q6H PRN PRN Reason: itching Docusate Sodium (Colace Cap*) 100 mg PO BID [facility] Last Admin: 12/18/17 09:19 Dose: 100 mg Enoxaparin Sodium (Lovenox(*)) 30 mg SUBCUT Q24H [facility] Last Admin: 12/18/17 12:30 Dose: 30 mg Lactated Ringer's (Lactated Ringers 1000 Ml Bag*) 1,000 mls @ 75 mls/hr IV PER RATE [facility] Last Admin: 12/18/17 02:43 Dose: 75 mls/hr Lactulose (Lactulose*) 30 ml PO Q6H PRN PRN Reason: constipation Magnesium Hydroxide (Milk Of Magnesia Liq*) 30 ml PO BID [facility] Last Admin: 12/18/17 09:18 Dose: 30 ml Magnesium Hydroxide (Milk Of Magnesia Liq*) 30 ml PO Q6H PRN PRN Reason: constipation Morphine Sulfate (Morphine Vial*) 2 mg IV Q2H PRN PRN Reason: PAIN Multivitamins (Theragran Tab*) 1 tab PO DAILY [facility] Last Admin: 12/18/17 09:19 Dose: 1 tab Ondansetron HCl (Zofran Inj*) 4 mg IV Q6H PRN PRN Reason: nausea Oxycodone HCl (Roxycodone Tab*) 10 mg PO Q4H PRN PRN Reason: PAIN - SEVERE Oxycodone HCl (Roxycodone Tab*) 5 mg PO Q4H PRN PRN Reason: PAIN Last Admin: 12/18/17 13:05 Dose: 5 mg Pharmacy Profile Note (Coumadin Daily Reminder*) 0 note FOLLOW UP 1700 [facility] Last Admin: 12/17/17 17:38 Dose: 1 note Vital Signs - 8 hr 12/18/17 12/18/17 12/18/17 09:19 11:04 11:20 Temperature 98.4 F Pulse Rate 104 Respiratory 16 16 16 Rate Blood Pressure 126/50 (mmHg) O2 Sat by Pulse 95 Oximetry 12/18/17 13:05 Temperature Pulse Rate Respiratory 16 Rate Blood Pressure (mmHg) O2 Sat by Pulse Oximetry Oxygen Devices in Use Now: None Appearance: Patient is an 82yo female who appears stated age and is sitting in the bed in [facility]. Eyes: No Scleral Icterus, PERRLA Ears/Nose/Mouth/Throat: NL Teeth, Lips, Gums, Clear Oropharnyx, Mucous Membranes Moist Neck: NL Appearance and Movements; NL JVP, Trachea Midline Respiratory: Symmetrical Chest Expansion and Respiratory Effort, Clear to Auscultation Cardiovascular: NL Sounds; No Murmurs; No JVD, RRR, No Edema Abdominal: NL Sounds; No Tenderness; No Distention, No Hepatosplenomegaly Lymphatic: No Cervical Adenopathy Extremities: No Edema, No Clubbing, Cyanosis Skin: No Nodules or Sclerosis, - - Left hip covered with bulky dressing. Neurological: Alert and Oriented x 3, NL Sensation, NL Muscle Strength and Tone , - - Left sided facial droop unchanged. Result Diagrams: 12/18/17 05:10 12/18/17 05:10 Assess/Plan/Problems-Billing Assessment: Patient is an 82yo female with a PMH for pernicious anemia, Afib, Frequent UTIs who is S/P LTHA and is doing well. - Patient Problems (1) Post-operative state Current Visit: Yes Status: Acute Code(s): Z98.890 - OTHER SPECIFIED POSTPROCEDURAL STATES SNOMED Code(s): 68614388 Comment: Managment per Primary Team. Monitor H/H. PT/OT. Pain control moderate. Bowel regimen, is urinating well with Hicks out. (2) Pernicious anemia Current Visit: Yes Status: Acute Code(s): D51.0 - VITAMIN B12 DEFIC ANEMIA DUE TO INTRINSIC FACTOR DEFICIENCY SNOMED Code(s): 06312494 Comment: B12 is normal. Continue monthly injections. No anemia. (3) Paroxysmal atrial fibrillation Current Visit: Yes Status: Acute Code(s): I48.0 - PAROXYSMAL ATRIAL FIBRILLATION SNOMED Code(s): 572739977 Comment: Only one episode. In the setting of excessive caffeine. Normal R/R on exam. (4) Frequent UTI Current Visit: Yes Status: Acute Code(s): N39.0 - URINARY TRACT INFECTION, SITE NOT SPECIFIED SNOMED Code(s): 188431982 Comment: Recent treatment for UTI. No current symptoms. Preoperative urinalysis negative. (5) GERD (gastroesophageal reflux disease) Current Visit: Yes Status: Acute Code(s): K21.9 - GASTRO-ESOPHAGEAL REFLUX DISEASE WITHOUT ESOPHAGITIS SNOMED Code(s): 782652351 Comment: Continue Omeprazole. Asymptomatic. History gastritis. (6) DVT prophylaxis Current Visit: Yes Status: Acute Code(s): RFO0987 - SNOMED Code(s): 866707924 Comment: Lovenox to Warfarin. (7) Full code status Current Visit: Yes Status: Acute Code(s): Z78.9 - OTHER SPECIFIED HEALTH STATUS SNOMED Code(s): 165242575 Status and Disposition: Inpatient. Disposition per primary team. We will sign off. Thank you for this consult. Please call with any questions.
[2017-12-18] MEDS ORDERED: Warfarin TAB(*) 6 MG PO ONE (19:00)
[2017-12-19 05:50] LABS: Hematocrit 26 % (35-47); Hemoglobin 8.8 g/dl (12.0-16.0); Mean Platelet Volume 8.2 um3 (7.4-10.4); Platelet Count 249 10^3/ul (150-450)
[2017-12-19 05:54] LABS: INR 2.64 (0.77-1.02)
[2017-12-19] MEDS: oxyCODONE TAB* 5 MG TAB PO PRN ×2 (07:05→12:11)
[2017-12-19] MEDS: Magnesium Hydroxide LIQ* 30 ML UDC PO SCH (08:28)
[2017-12-19] MEDS: Vitamin THERAPEUTIC TAB PO SCH (08:29)
[2017-12-19] MEDS: Docusate CAP* 100 MG PO SCH (08:29)
[2017-12-19] MEDS ORDERED: Ondansetron ODT TAB* 4 MG SL ONE (09:32)
[2017-12-19] MEDS ORDERED: Ondansetron ODT TAB* 4 MG SL PRN (09:36)
[2017-12-19 11:42] VITALS: BP 119/54
--- NOTE | 2017-12-19 12:18 | PN ---
Progress Note - Progress Note Date of Service: 12/19/17 SOAP: Subjective: Pt is doing well. Pain is controlled on oral oxycodone. C/O nausea and decreased appetite from pain meds. No BM but passing flatus. Denies F/C, CP/ SOB Objective: PE- 82 y/o WDWN F NAD, A&O x3 LLE- dressing changed, inc c/d/i with no sign of infection, +DF/ pF ankle, +2 DP pulse, SILT distally Vital Signs Temp Pulse Resp BP Pulse Ox 98.3 F 98 18 119/54 97 12/19/17 11:26 12/19/17 11:26 12/19/17 12:11 12/19/17 11:26 12/19/17 11:26 Laboratory Results - last 24 hr 12/19/17 12/19/17 05:25 05:25 Hgb 8.8 L Hct 26 L Plt Count 249 MPV 8.2 INR (Anticoag Therapy) 2.64 H Assessment: POD 2 s/p left ERI Plan: DC to home with VNS today Coumadin for DVT prophylaxis, colace for constipation, zofran for nausea and oxycodone for pain d/t tylenol allergy WBAT LLE cont PT/OT post hip precautions F/U 10-14 days post op
--- NOTE | 2017-12-19 14:42 | DS ---
DISCHARGE SUMMARY: DATE OF ADMISSION: 12/17/17 DATE OF DISCHARGE: 12/19/17 PROVIDER: Dr. Soila Up. * (DICTATED BY EBONIE LEE) ADMITTING DIAGNOSIS: Left hip osteoarthritis. SECONDARY DIAGNOSES: 1. Transient atrial fibrillation. 2. Diverticulitis. 3. Osteoarthritis. 4. Gastroesophageal reflux disease. 5. Pernicious anemia. 6. Vertigo. 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 8. Irritable bowel syndrome. 9. Gastritis. 10. Urinary tract infection. 11. 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 12. Resolved hepatitis. CONSULTATION: PT, OT, and Medicine. HISTORY OF PRESENT ILLNESS: Ms. Alan is an 82-year-old female who presented to the clinic for a left hip pain due to severe osteoarthritis. She has failed conservative measures and is therefore agreed to undergo a left total hip arthroplasty with Dr. Up on 12/17/17. HOSPITAL COURSE: [place] [facility] [place] She underwent a left total hip arthroplasty. Postoperatively, she recovered on the short-stay surgical unit. Postop day 1, the Hicks was removed and her pain was controlled with oral Percocet. She restarted her home medications. Labs and vitals remained stable. She was able to weight bear as tolerated on the left lower extremity. She was advanced appropriately with physical therapy and occupational therapy. DVT prophylaxis was managed with Lovenox and Coumadin until she reached the therapeutic INR. By postop day 2, she was orthopedically and medically stable for discharge to home with VNS services. DISCHARGE CONDITION: Stable. DISCHARGE MEDICATIONS: Home medications continued on discharge to include: 1. Vitamin B12 injections 1000 mcg IM monthly. 2. Refresh Optive eye drops 15 mL drop to 1 in the left 3 times a day as needed. 3. Astepro 1 spray both nares in the morning. 4. Fluticasone 2 sprays to both nares in the morning. 5. Prilosec 20 mg 1 by mouth in the morning. 6. Turmeric 500 mg 1 by mouth twice a day. 7. Metamucil 2 teaspoons by mouth twice a day. 8. Culturelle probiotics 1 capsule by mouth in the morning. 9. Hyoscyamine sulfate 0.125 mg 1 by mouth as needed. 10. Caltrate 600 plus vitamin D 1 tab in the morning. 11. Huperzine serrate 1 tab in the morning. 12. Quercetin 600 mg 1 by mouth in the morning. 13. Tramadol 50 mg 1 by mouth as needed. New medications on discharge to include: 1. Colace 100 mg 1 by mouth 3 times a day. 2. Zofran 4 mg sublingual every 6 hours as needed for nausea. 3. Oxycodone 5 mg 1 to 2 tabs every 4 to 6 hours as needed for pain. 4. Coumadin 2 mg 1 to 5 tabs daily as directed by doctor. DISCHARGE INSTRUCTIONS: The patient is weightbearing as tolerated on the left lower extremity. She should continue posterior hip precaution. She may shower postop day 3, no submerging the wound in water. She may redress it with Marlon and tape. She should call the orthopedic office with increased drainage, redness, increased pain or fever and go to the ER with chest pain or shortness of breath. Regular diet with increased fluids. She should use stool softeners. If no bowel movement within 48 hours, she should try an over-the- counter suppository and call if that does not work. She should go to the ER with increased abdominal pain with bloating and inability to pass gas. She should continue physical therapy and occupational therapy exercises as shown. Visiting home nurses to do wound checks and INRs draws on Thursday and . She will continue Coumadin for DVT prophylaxis for 30 days. Dosing on 12/19/17, hold; on 12/20/17, 2 mg; 12/21/17, redraw. She should avoid taking aspirin, ibuprofen and naproxen while on the Coumadin. Pain control with oxycodone, maximum 10 a day. She should take Zofran as needed for nausea and Colace for her constipation. She will require antibiotics prior to dental work. She will follow up in 10 to 14 days postop. EBONIE LEE [id number]/[facility] #: [id number] [facility] THRO[facility] HOSPITALBeryl
== END 2017-12-19 14:00 | disposition home health service (06) | DRG 470 ==
LOC: AA 06:55 → SSU 14:36
PROVIDERS: ADMIT Orthopaedic Surgery Adult Reconstructive Orthopaedic Surgery; ATTEND Orthopaedic Surgery Adult Reconstructive Orthopaedic Surgery
PROC: 0SRB02A Replacement of Left Hip Joint with Metal on Polyethylene Synthetic Substitute, Uncemented, Open Approach (ICD-10-PCS; principal; 2017-12-17 10:00)
DX: M16.0 Bilateral primary osteoarthritis of hip (principal); K90.41 Non-celiac gluten sensitivity; G89.29 Other chronic pain; K21.9 Gastro-esophageal reflux disease without esophagitis; K58.9 Irritable bowel syndrome, unspecified; K29.70 Gastritis, unspecified, without bleeding; G62.9 Polyneuropathy, unspecified; R42 Dizziness and giddiness; D51.0 Vitamin B12 deficiency anemia due to intrinsic factor deficiency; M72.0 Palmar fascial fibromatosis [Dupuytren]; I48.0 Paroxysmal atrial fibrillation; R29.810 Facial weakness; Z96.1 Presence of intraocular lens; M85.88 Other specified disorders of bone density and structure, other site; R11.0 Nausea; T39.95XA Adverse effect of unspecified nonopioid analgesic, antipyretic and antirheumatic, initial encounter; Z79.01 Long term (current) use of anticoagulants; Z87.440 Personal history of urinary (tract) infections; Z98.42 Cataract extraction status, left eye; Z80.3 Family history of malignant neoplasm of breast; Z98.41 Cataract extraction status, right eye; Z91.018 Allergy to other foods; Z88.8 Allergy status to other drugs, medicaments and biological substances; Z88.0 Allergy status to penicillin; Z87.891 Personal history of nicotine dependence; Z91.013 Allergy to seafood; Z79.52 Long term (current) use of systemic steroids
CPT/HCPCS: 36415; 72170; 80048; 85014; 85018; 85049; 85610; 88304; 88311; A9270-GY; C1713; C1776; G8978-GP-CL; G8979-GP-CI; G8980-GP-CI; G8987-GO-CI; G8987-GO-CJ; G8988-GO-CH; J0330; J1100; J1170; J1650; J1885; J2250; J2405; J2704; J3010

== ENCOUNTER 2018-05-20 09:23 | Emergency (ER) | payer MEDICARE, BC ==
[2018-05-20 09:36] VITALS: BP 146/81
--- NOTE | 2018-05-20 09:58 | UC ---
Hand/Wrist HPI - HPI Summary HPI Summary: 82 yo female presents s/p fall. She tells me that yesterday she tripped on a rug and fell onto her b/l knees and hands. Did not hit her head. Since that time she has had pain in her RIGHT hand and ring fingers as well as LEFT wrist. She does have a baseline contracture at her right pinky and ring finger, so movement is limited at baseline. She has been icing the hand. Denies numbness or tingling. - History Of Current Complaint Chief Complaint: UCUpperExtremity Stated Complaint: HAND INJURY Hx Obtained From: Patient Onset/Duration: Sudden Onset Severity Initially: Moderate Severity Currently: Moderate Pain Intensity: 6 Pain Scale Used: 0-10 Numeric - Allergies/Home Medications Allergies/Adverse Reactions: Allergies Allergy/AdvReac Type Severity Reaction Status Date / Time scopolamine Allergy Intermediate Altered Verified 05/20/18 09:36 Mental Status wheat Allergy Intermediate See Comment Verified 05/20/18 09:36 acetaminophen [From Tylenol] Allergy Vomiting Verified 05/20/18 09:36 gluten Allergy See Comment Verified 05/20/18 09:36 Penicillins Allergy Hives Verified 05/20/18 09:36 procaine [From Novocain] Allergy Dizziness Verified 05/20/18 09:36 Home Medications: Home Medications Naproxen Sodium [Aleve] 220 mg PO ONCE PRN 05/20/18 [History Confirmed 05/20/18] PMH/Surg Hx/FS Hx/Imm Hx - Additional Past Medical History Additional PMH: Vitamin B12 def Osteoporosis - Surgical History Surgical History: Yes Surgery Procedure, Year, and Place: TONSILLECTOMY A CHILD. hip replacement - 2018 - Family History Known Family History: Positive: Cardiac Disease, Hypertension, Other - breast CA - Social History Occupation: Retired Lives: Assisted Living Alcohol Use: None Substance Use Type: None Smoking Status (MU): Former Smoker Type: Cigarettes Amount Used/How Often: 1ppd Length of Time of Smoking/Using Tobacco: 15 years Have You Smoked in the Last Year: No When Did the Patient Quit Smoking/Using Tobacco: 38 years ago - Immunization History Most Recent Influenza Vaccination: 03/30 Most Recent Pneumonia Vaccination: had in the past Review of Systems All Other Systems Reviewed And Are Negative: Yes Constitutional: Positive: Negative Skin: Positive: Negative Respiratory: Positive: Negative Cardiovascular: Positive: Negative Neurovascular: Positive: Negative Musculoskeletal: Positive: Other: - Right hand and ring finger pain. Left wrist pain Neurological: Positive: Negative Psychological: Positive: Negative Physical Exam - Summary Physical Exam Summary: GENERAL: NAD. WDWN. No pain distress. SKIN: No rashes, sores, lesions, or open wounds. CHEST: No accessory muscle use. Breathing comfortably and in no distress. CV: Pulses intact radial and ulnar. Cap refill <2seconds MSK: LEFT WRIST: FROM. Pain with supination. NTTP. Mild ecchymosis and edema at dorsal aspect. Strength 5/5 including recruitment officer strength. No snuffbox tenderness. RIGHT hand: 4th finger with moderate edema and ecchymosis as proximal phalanx. Mild TTP here. FROM - contracture as baseline. NEURO: Alert. Sensations intact hand and all fingers. PSYCH: Age appropriate behavior. Triage Information Reviewed: Yes Vital Signs: Initial Vital Signs Temp 97.2 F 05/20/18 09:28 Pulse 89 05/20/18 09:28 Resp 18 05/20/18 09:28 BP 146/81 05/20/18 09:28 Pulse Ox 99 05/20/18 09:28 Vital Signs Reviewed: Yes Hand/Wrist Course/Dx - Course Course Of Treatment: XR hands: IMPRESSION: #. Intra-articular fracture base of the RIGHT fourth proximal phalanx. #. Negative for LEFT hand fracture. XR left wrist: IMPRESSION: NO FRACTURE OF THE WRIST IS NOTED. Suspect left wrist sprain/contusion - she was provided with a cockup splint. For her right finger fracture, the 4th digit and 5th digit were splinted with a metal splint and adalberto taped. Advised to RICE and f/u with Orthopedics. - Differential Dx/Diagnosis Provider Diagnosis: Fracture of phalanx of right ring finger, Contusion of left wrist Discharge - Sign-Out/Discharge Documenting (check all that apply): Patient Departure All imaging exams completed and their final reports reviewed: Yes - Discharge Plan Condition: Stable Disposition: HOME Patient Education Materials: Finger Fracture (ED), Wrist Sprain (ED) Referrals: Kate June MD [Primary Care Provider] - Phan Moreno MD [Medical Doctor] - As Soon As Possible Additional Instructions: If you develop a fever, shortness of breath, chest pain, new or worsening symptoms - please call your PCP or go to the ED. Your blood pressure was mildly elevated at todays visit. Please see your primary provider within 4 weeks for recheck and re-evaluation. 1) Rest, Ice, and elevate your wrist as much as possible 2) Keep the finger splint and adalberto tape clean, dry, and intact 3) Please call Orthopedics at the number below to schedule a follow up appointment as soon as possible - Billing Disposition and Condition Condition: STABLE Disposition: Home
== END 2018-05-20 10:53 | disposition home or self-care (01) ==
LOC: UCEAST 09:23
DX: S60.212A Contusion of left wrist, initial encounter (principal); Z87.891 Personal history of nicotine dependence; S62.644A Nondisplaced fracture of proximal phalanx of right ring finger, initial encounter for closed fracture; W01.0XXA Fall on same level from slipping, tripping and stumbling without subsequent striking against object, initial encounter; Y92.9 Unspecified place or not applicable; Z88.4 Allergy status to anesthetic agent; Z88.0 Allergy status to penicillin; Z88.6 Allergy status to analgesic agent
CPT/HCPCS: 99213; G0463

== ENCOUNTER 2019-08-18 10:08 | Emergency (ER) | payer MEDICARE, BC ==
--- OUTSIDE RECORDS SUMMARY | 2019-08-18 10:34 | XMS REPORT | Continuity of Care Document ---
:1935 External Reference #:[id number] Author Name Ruby Crook NP (transmitted by agent of provider Qing Zhang) Address [address], [place] [address] Care Team Providers Name Role Phone Kate June MD - Internal Care Team Information Manager Sales Training Medicine Problems Active Problems Provider Date H/O: atrial fibrillation Dionicio Buckley NP Onset: 02/13/2017 Pernicious anemia Dionicio Buckley NP Onset: 02/13/2017 Michelle's palsy Dionicio Buckley NP Onset: 02/13/2017 Localized, primary osteoarthritis of the pelvic Soilabhavna Up M.D. Onset: region and thigh Nondisplaced fracture of proximal phalanx of Phan Moreno MD Onset: 2017 right ring finger, initial encounter for closed fracture Contracture of palmar fascia Phan Moreno MD Onset: 07/20/2018 Social History Type Date Description Comments Sex Unknown ETOH Use Denies alcohol use Tobacco Use Start: Unknown End: Patient is a former smoker Unknown Smoking Status Reviewed: 08/09/19 Patient is a former smoker Exercise Type/Frequency Exercises regularly Allergies, Adverse Reactions, Alerts Active Allergies Reaction Severity Comments Date Wheat/Gluten 09/12/2014 Tylenol 09/12/2014 Scopolamine 09/12/2014 Antihistimines 09/26/2016 Amoxicillin Hives 04/08/2017 Novacaine 11/11/2017 Medications Active Medications SIG Qnty Indications Ordering Date Provider Macrobid 1 tablet by mouth 14caps N39.0 Kate 08/09/2019 100mg Capsules twice a day for 7 Essie June days Meclizine HCL One tablet every 8 30tabs J30.89 Dionicio Buckley NP 11/26/2018 12.5mg hours as needed for Tablets dizziness Clindamycin HCL take 3 pills 1 hour 3caps Juan Grossman, 06/10/2018 300mg prior to your dental MD Capsules procedure Hyoscyamine Sulfate by mouth three times 30tabs Dionicio Buckley NP 06/01/2018 a day as needed 0.125mg Tablets Sub sublingual Colace 1 tab by mouth three 90caps Soilabhavna Up, 12/19/2017 100mg Capsules times a day as M.D. needed constipation Calcium 600 + D 1 by mouth once a Mariana Patel, 10/06/2017 day N.P. [id number] Tablets Metamucil Smooth 1 tbs by mouth once 500gm Mariana Patel, 10/06/2017 Texture a day N.P. 58.6% Powder Omeprazole Take 1 Capsule By 30caps K21.9 Dionicio Buckley NP 09/02/2017 20mg Mouth Every Day Capsules DR Cyanocobalamin 1 cubic centimeters 25ml Dionicio Buckley NP 07/26/2017 intramuscular once 1000mcg/ML Solution monthly Multivitamin With as directed Unknown Calcium And Vit D Tabs Fluticasone As directed Unknown Propionate 50mcg/Act Suspension Azelastine HCL as directed Unknown 137mcg/Blue Solution Refresh Liquigel Unknown 1% Solution Culturelle Unknown Capsules Huperzine Serrate A Unknown 50MG Medications Administered in Office Medication SIG Qnty Indications Ordering Provider Date B-12 Injection Nurse Visit A 07/11/2019 Injection B-12 Injection Nurse Visit A 06/09/2019 Injection B-12 Injection Nurse Visit A 05/09/2019 Injection B-12 Injection Nurse Visit A 04/05/2019 Injection B-12 Injection Nurse Visit A 03/04/2019 Injection B-12 Injection Nurse Visit A 01/31/2019 Injection B-12 Injection Nurse Visit A 12/30/2018 Injection B-12 Injection Nurse Visit A 11/29/2018 Injection B-12 Injection Nurse Visit A 10/26/2018 Injection B-12 Injection Nurse Visit A 09/24/2018 Injection Xiaflex Inj Phan Moreno MD 08/31/2018 Collagenase,Clostridium Histolyticum, 0.01MG Injection B-12 Injection Nurse Visit A 08/26/2018 Injection B-12 Injection Nurse Visit A 07/23/2018 Injection B-12 Injection Nurse Visit A 06/21/2018 Injection B-12 Injection Nurse Visit A 05/18/2018 Injection B-12 Injection Dionicio Buckley NP 04/12/2018 Injection B-12 Injection Nurse Visit A 03/10/2018 Injection B-12 Injection Nurse Visit A 02/05/2018 Injection B-12 Injection Nurse Visit A 01/04/2018 Injection B-12 Injection Nurse Visit A 12/04/2017 Injection B-12 Injection Dionicio Buckley NP 11/03/2017 Injection B-12 Injection Nurse Visit A 09/29/2017 Injection B-12 Injection Nurse Visit A 08/25/2017 Injection B-12 Injection Nurse Visit A 07/27/2017 Injection B-12 Injection Nurse Visit A 06/24/2017 Injection B-12 Injection Nurse Visit A 05/20/2017 Injection B-12 Injection Nurse Visit A 04/20/2017 Injection Xiaflex Inj Yolanda Shen M.D. 03/30/2017 Collagenase,Clostridium Histolyticum, 0.01MG Injection Xiaflex Inj Yolanda Shen M.D. 03/30/2017 Collagenase,Clostridium Histolyticum, 0.01MG Injection B-12 Injection Nurse Visit A 03/20/2017 Injection B-12 Injection Nurse Visit A 02/17/2017 Injection Xiaflex Inj Torrie Shankar, 10/24/2014 Collagenase,Clostridium Essie Histolyticum, 0.01MG Injection Immunizations CPT Code Status Date Vaccine Reaction Lot # [id number] Given 04/05/2019 Influenza Virus Vaccine, No immediate [id number] Quadrivalent ([id number]), reaction..jh Derived From Cell 28505 Given 04/08/2017 Pneumococcal Conjugate [id number] Vaccine 13 Valent For Intramuscular Use 41204 Given 02/17/2017 Influenza Virus Vaccine, [id number] Quadrivalent, Split, Preservative Free Vital Signs Date Vital Result Comment 08/09/2019 3:11pm Height 66 inches 5'6" Weight 156.25 lb Heart Rate 79 /min BP Systolic 172 mmHg recheck 133/82 BP Diastolic 90 mmHg recheck 133/82 Body Temperature 97.7 F O2 % BldC Oximetry 98 % BMI (Body Mass Index) 25.2 kg/m2 04/13/2019 10:10am Height 66 inches 5'6" Weight 154.00 lb Heart Rate 75 /min BP Systolic 132 mmHg BP Diastolic 77 mmHg Body Temperature 97.1 F O2 % BldC Oximetry 96 % BMI (Body Mass Index) 24.9 kg/m2 Results Test Acquired Date Facility Test Result H/L Range Note Ua Routine 08/09/2019 [employer] [facility] Ua Specific [place] 1.015 Ua PH 6 Ua Color yellow Ua Appera clear Ua WBC ++ Ua Protein negative Ua Glucose normal Ua Ketones negative Ua Bilirubin negative Ua Urobilinogen normal Ua Nitrite negative Ua Occult Blood negative Procedures Date Code Description Status 07/11/2019 [id number] Admin Of Inj Completed 06/09/2019 88398 Admin Of Inj Completed 05/09/2019 [id number] Admin Of Inj Completed 04/05/2019 [id number] Admin Of Inj Completed 03/04/2019 [id number] Admin Of Inj Completed 05/04/2018 [id number] Bone Mineral Density Test Completed 04/30/2018 [id number] Mammogram Completed 02/04/2016 [id number] Mammogram Completed 06/15/2008 [id number] Colonoscopy Completed Medical Devices Description No Information Available Encounters Description No Information Available Assessments Date Code Description Provider 08/09/2019 N39.0 Urinary tract infection, site not Ruby Crook NP specified 08/09/2019 I48.0 Paroxysmal atrial fibrillation Ruby Crook NP 08/09/2019 H61.22 Impacted cerumen, left ear Ruby Crook NP 07/11/2019 D51.9 Vitamin B12 deficiency anemia, Nurse Visit A unspecified 06/09/2019 D51.9 Vitamin B12 deficiency anemia, Nurse Visit A unspecified 05/09/2019 D51.9 Vitamin B12 deficiency anemia, Nurse Visit A unspecified 04/13/2019 Z00.00 Encounter for general adult medical Dionicio Buckley NP examination without abnormal findings 04/13/2019 Z12.83 Encounter for screening for malignant Dionicio Buckley NP neoplasm of skin 04/13/2019 N63.11 Unspecified lump in the right breast, Dionicio Buckley NP upper outer quadrant 04/05/2019 D51.9 Vitamin B12 deficiency anemia, Nurse Visit A unspecified 04/05/2019 Z23 Encounter for immunization Nurse Visit A 03/04/2019 D51.9 Vitamin B12 deficiency anemia, Nurse Visit A unspecified Plan of Treatment Future Appointment(s):08/12/2019 1:30 pm - [facility] - Florentin Perry MD at [facility] [place]/ 04/2020 1:00 pm - Dionicio Buckely NP at [facility] - [facility]08/09/2019 - Ruby Crook NPN39.0 Urinary tract infection, site not specifiedNew Medication:Macrobid 100 mg - 1 tablet by mouth twice a day for 7 daysComments:Your urine test showed presence of leukocytes. We are sending the sample for culture to confirm bacterial infection. Given your current symptoms and history of UTIs we will treat you today. Call us with worsening symptoms or if symptoms do not improve in the next few daysFollow up:as bygvteN92.0 Paroxysmal atrial fibrillationComments:No issues unless taking oral anti- histamine.H61.22 Impacted cerumen, left earNew Orders:Ear Irrigation, Ordered: 08/09/19Comments:Left ear has cerumen impaction. Irrigated today. Post irrigation your ear looks good. Functional Status Description No Information Available Mental Status Description No Information Available Referrals Refer to Reason for Referral Status Appt Date Sana Alvares MD Sent 08/31/2019 [facility], [place] [address] [phone]
--- OUTSIDE RECORDS SUMMARY | 2019-08-18 10:34 | XMS REPORT | Continuity of Care Document ---
:1935 External Reference #:[id number] Author Name Kate June M.D. 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 Onset: region and thigh Nondisplaced [...] Medications SIG Qnty Indications Ordering Date Provider Clindamycin HCL take two tabs one 2caps Soila Up 08/12/2019 300mg hour prior to dental M.DBimal Capsules work Macrobid 1 tablet by mouth 14caps N39.0 Kate 08/09/2019 100mg Capsules twice a day for 7 Cotton, M.D. days Meclizine HCL One tablet every 8 30tabs J30.89 Dionicio Buckley NP 11/26/2018 12.5mg hours as needed for Tablets dizziness Hyoscyamine Sulfate by mouth three times 30tabs Dionicio Buckley NP 06/01/2018 a day as needed 0.125mg Tablets Sub sublingual Colace 1 tab by mouth three 90caps Soila Up, 12/19/2017 100mg Capsules times a day as M.D. needed constipation Calcium 600 + D 1 by mouth once a Mariana Patel, 10/06/2017 day N.P. [id number] Tablets Metamucil Smooth 1 tbs by mouth [...] 50mcg/Act Suspension Azelastine HCL as directed Unknown 137mcg/[place] Solution Refresh Liquigel Unknown 1% Solution Culturelle Unknown Capsules Huperzine Serrate A Unknown 50MG Medications Administered in Office Medication SIG Qnty Indications Ordering Provider Date B-12 Injection Nurse Visit A 08/12/2019 Injection B-12 Injection Nurse Visit A 07/11/2019 Injection [...] Visit A 05/18/2018 Injection B-12 Injection Dionicio Buckley, TYPEWRITERS FUNCTIONAL TESTER 04/12/2018 Injection B-12 Injection Nurse Visit A 03/10/2018 Injection B-12 Injection Nurse Visit A 02/05/2018 Injection B-12 Injection Nurse Visit A 01/04/2018 Injection B-12 Injection Nurse Visit A 12/04/2017 Injection B-12 Injection Dionicio Buckley, TYPEWRITERS FUNCTIONAL TESTER 11/03/2017 Injection B-12 Injection Nurse Visit A [...] Visit A 02/17/2017 Injection Xiaflex Inj Torrie Vonnie, 10/24/2014 Collagenase,Clostridium Essie Histolyticum, 0.01MG Injection Immunizations CPT Code Status Date Vaccine Reaction Lot # [id number] Given 04/05/2019 Influenza Virus Vaccine, No immediate [id number] Quadrivalent ([id number]), reaction..jh Derived From Cell 54930 Given 04/08/2017 Pneumococcal Conjugate [id number] Vaccine 13 Valent For Intramuscular Use 81474 Given 02/17/2017 Influenza Virus Vaccine, [id number] Quadrivalent, [...] Date Facility Test Result H/L Range Note Order 08/12/2019 [facility] EKG <pending> Urine Culture And 08/09/2019 [facility] Urine Culture SEE RESULT [address] [place] [address] [phone] Ua Routine 08/09/2019 [facility] In House Ua Specific 1.015 [place]man Ua PH 6 Ua Color yellow Ua Appera clear Ua WBC ++ Ua Protein negative Ua Glucose normal Ua Ketones negative Ua Bilirubin negative Ua Urobilinogen normal Ua Nitrite negative Ua Occult Blood negative 1 SEE RESULT BELOW Name: MANJEET VILLAVICENCIO : [address]: Ruby Laura Acct: [id number] Unit: [id number] AGE: 84 Location: [facility] Re08/09/19 SEX: F Status: REG REF SPEC: [id number] TRENA: 08/09/19-[address]: Ruby Crook TYPEWRITERS FUNCTIONAL TESTER REQ: [id number] RECD: 08/09/19 STATUS: COMP _ SOURCE: URINE SPDESC: ORDERED: Urine Culture COMMENTS: [id number] Urine Source: Clean Catch Procedure Result Reported Site Urine Culture Final 08/12/19- 928 ML Organism 1 ESCHERICHIA COLI [place] Count 75-100,000 (Many) CFU/ML 1. ESCHERICHIA COLI M.I.C. RX --------- ------ Ampicillin <=2 S Cefazolin <=4 S Cefepime <=1 S Ceftriaxone <=1 S Ciprofloxacin <=0.25 S Gentamicin <=1 S Levofloxacin <=0.12 S Meropenem <=0.25 S Nitrofurantoin <=16 S Tetracycline <=1 S Pipercillin/Tazobactam <=4 S Trimethoprim/Sulfamethoxazole <=20 S Amoxicillin/Clavulanic Acid <=2 S Aztreonam <=1 S Contact the Microbiology Department for any additional antibiotic reporting. * [facility] - Main Lab . END OF REPORT DEPARTMENT OF PATHOLOGY, [address] [place] [id number] Eric Lomas M.D. Director [facility] # [id number] Procedures Date Code Description Status 08/12/2019 88146 EKG Tracing & Interpretation Completed 08/09/2019 21530 Remove Impact Cerumen Irrigati Completed 07/11/2019 15942 Admin Of Inj Completed 06/09/2019 29892 Admin Of Inj Completed 05/09/2019 72480 Admin Of Inj Completed 04/05/2019 62891 Admin Of Inj Completed 03/04/2019 52143 Admin Of Inj Completed 05/04/2018 [id number] Bone Mineral Density Test Completed 04/30/2018 [id number] Mammogram Completed 02/04/2016 [id number] Mammogram Completed 06/15/2008 [id number] Colonoscopy Completed Medical Devices Description No Information Available Encounters Type Date Location Provider Dx Diagnosis Office Visit 08/09/2019 [facility] Internal Bagum Rich N39.0 Urinary tract 3:00p Medicine - Rito Crook NP infection, site not specified H61.22 Impacted cerumen, left ear I48.0 Paroxysmal atrial fibrillation Assessments Date Code Description Provider 08/12/2019 I48.0 Paroxysmal atrial fibrillation Nurse Visit A 08/09/2019 N39.0 Urinary tract infection, site not Bagum Rich Crook NP specified 08/09/2019 H61.22 Impacted cerumen, left ear Bagdarrell Crook NP 08/09/2019 I48.0 Paroxysmal atrial fibrillation Ruby Crook NP 07/11/2019 D51.9 Vitamin B12 [...] Visit A unspecified Plan of Treatment Future Appointment(s):09/12/2019 9:10 am - [facility] - Florentin Perry MD at [facility] Sclphdipysf20/ 04/2020 1:00 pm - Dionicio Buckley NP at [facility] Internal Medicine - [facility]08/09/2019 - Ruby Crook NPN39.0 Urinary tract [...] improve in the next few daysFollow up:as cnmtxxC08.22 Impacted cerumen, left earComments:Left ear has cerumen impaction. Irrigated today. Post irrigation your ear looks good.I48.0 Paroxysmal atrial fibrillationComments:No issues unless taking oral anti-histamine. Functional Status Description No Information Available Mental Status Description No Information Available Referrals Refer to Reason for Referral Status Appt Date Sana Alvares MD Sent 08/31/2019 [facility], [place] [address] [phone]
--- NOTE | 2019-08-18 10:41 | ED ---
Palpitations / Dysrhythmia - HPI Summary HPI Summary: 84 year old F with hx atrial fibrillation arriving via private car to [facility] complains of intermittent palpitations x4 days. Patient woke up this morning 0700 with palpitations. They stopped minutes later and started again. She decided to come to the ED. She states she hasn't had palpitations in years. Patient reports an episode of chest discomfort lasting for 2-3 minutes this morning while she was having palpitations. She does not currently have chest discomfort. The chest discomfort did not radiate to jaw or left upper extremity. Patient denies any fever, chills, erythema of eyes, sore throat, shortness of breath, cough, abdominal pain, nausea/vomiting, decreased appetite , dysuria, hematuria, myalgia, edema, bilateral leg pain, rash, or dizziness. The patient rates the pain 0/10 in severity. Symptoms aggravated by caffeine. Symptoms alleviated by nothing. Medications reviewed. Not on anticoagulants. Recent dx UTI. Finished course of antibiotics on 08/15. Was seen by dentist and started another course of antibiotics 08/16. Allergies noted. No alcohol. Non smoker. Patient admits to drinking regular coffee every morning in the last few days. FHx cardiac disease. Home Medications Medication Instructions Recorded Confirmed Type Fluticasone NASAL SPRAY 50MCG* 2 spray BOTH NARES QA 10/22/16 08/18/19 History [Flonase NASAL SPRAY 50MCG*] Omeprazole [Prilosec] 20 mg PO QA 01/25/17 08/18/19 History - History of Current Complaint Chief Complaint: EDDysrhythmPalp Hx Obtained From: Patient Onset/Duration: Lasting Days - 4, Still Present Timing: Intermittent Episodes Lasting: Severity Currently: None Aggravating: Caffeine Alleviating: Nothing - Allergy/Home Medications Allergies/Adverse Reactions: Allergies Allergy/AdvReac Type Severity Reaction Status Date / Time scopolamine Allergy Intermediate Altered Verified 08/18/19 10:25 Mental Status wheat Allergy Intermediate See Comment Verified 08/18/19 10:25 acetaminophen [From Tylenol] Allergy Vomiting Verified 08/18/19 10:25 amoxicillin Allergy Hives Verified 08/18/19 10:25 gluten Allergy See Comment Verified 08/18/19 10:25 Penicillins Allergy Hives Verified 08/18/19 10:25 procaine [From Novocain] Allergy Dizziness Verified 08/18/19 10:25 Home Medications: Home Medications Fluticasone NASAL SPRAY 50MCG* [Flonase NASAL SPRAY 50MCG*] 2 spray BOTH NARES QAM 10/22/16 [History Confirmed 08/18/19] Omeprazole [Prilosec] 20 mg PO QAM 01/25/17 [History Confirmed 08/18/19] PMH/Surg Hx/FS Hx/Imm Hx Endocrine/Hematology History: Reports: Hx Anemia - PERNICIOUS DX 1982 Denies: Hx Diabetes, Hx Thyroid Disease Cardiovascular History: Reports: Other Cardiovascular Problems/Disorders - AFIB WITH EXCESSIVE CAFFEINE Denies: Hx Congestive Heart Failure, Hx Hypertension Respiratory History: Denies: Hx Asthma, Hx Chronic Obstructive Pulmonary Disease (COPD) GI History: Reports: Hx Gastroesophageal Reflux Disease, Hx Irritable Bowel - diarrhea, Hx Ulcer History: Reports: Other Problems/Disorders - freq UTI's Denies: Hx Dialysis, Hx Renal Disease Musculoskeletal History: Reports: Hx Arthritis, Hx Bursitis - HX BILAT HIPS AND SHOULDER, Hx Osteoporosis - OSTEOPENIA Sensory History: Reports: Hx Cataracts - BILAT, Hx Contacts or Glasses - GLASSES , Hx Hearing Aid - BILAT Opthamlomology History: Reports: Hx Cataracts - BILAT, Hx Contacts or Glasses - GLASSES Neurological History: Reports: Other Neuro Impairments/Disorders - 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 - pt does not recall where Denies: Hx Clostridium Difficile, Hx Human Immunodeficiency Virus (HIV), Hx Shingles, Hx Tuberculosis, Hx Known/Suspected VRE, Hx Known/Suspected VRSA, History Other Infectious Disease, Traveled Outside the [place] in Last 30 Days - Family History Known Family History: Positive: Cardiac Disease - uncle from [place], son has atrial flutter, Hypertension, Other - breast CA - Social History Alcohol Use: Rare Alcohol Amount: on Substance Use Type: Reports: None Hx Tobacco Use: Yes Smoking Status (MU): Former Smoker Type: Cigarettes Amount Used/How Often: 1ppd Length of Time of Smoking/Using Tobacco: 15 years Have You Smoked in the Last Year: No Review of Systems Negative: Fever, Chills Negative: Erythema Negative: Sore Throat Positive: Palpitations, Other - chest discomfort Negative: Shortness Of Breath, Cough Gastrointestinal: Negative - decreased appetite Negative: Abdominal Pain, Vomiting, Nausea Negative: dysuria, hematuria Musculoskeletal: Negative - bilateral leg pain Negative: Myalgia, Edema Negative: Rash Neurological/Mental Status: Negative - Dizziness All Other Systems Reviewed And Are Negative: Yes Physical Exam - Summary Physical Exam Summary: Constitutional: Well-developed, Well-nourished, Alert. (-) Distressed Skin: Warm, Dry HENT: Normocephalic; Atraumatic Eyes: Conjunctiva normal Neck: Musculoskeletal ROM normal neck. (-) JVD, (-) Stridor, (-) Tracheal deviation Cardio: Rhythm regular, rate normal, Heart sounds normal; Intact distal pulses; The pedal pulses are 2+ and symmetric. Radial pulses are 2+ and symmetric. (-) Murmur Pulmonary/Chest wall: Effort normal. (-) Respiratory distress, (-) Wheezes, (-) Rales Abd: Soft, (-) tenderness, (-) Distension, (-) Guarding, (-) Rebound Musculoskeletal: (-) Edema Lymph: (-) Cervical adenopathy Neuro: Alert, Oriented x3 Psych: Mood and affect Normal Triage Information Reviewed: Yes Vital Signs On Initial Exam: Initial Vitals Temp Pulse Resp BP Pulse Ox 98.0 F 91 16 164/97 98 08/18/19 10:11 08/18/19 10:11 08/18/19 10:11 08/18/19 10:11 08/18/19 10:11 Vital Signs Reviewed: Yes Procedures - Sedation Patient Received Moderate/Deep Sedation with Procedure: No Diagnostics - Vital Signs Vital Signs Temp Pulse Resp BP Pulse Ox 08/18/19 10:11 98.0 F 91 16 164/97 98 - Laboratory Result Diagrams: 08/18/19 10:47 08/18/19 10:47 Lab Statement: Any lab studies that have been ordered have been reviewed, and results considered in the medical decision making process. - EKG 1054 Cardiac Rate: NL - 68 BPM EKG Rhythm: Sinus Rhythm Summary of EKG Findings: An EKG shows normal sinus rhythm 68 BPM, RR 882, OH 171 , no STEMI. ED physician has reviewed and interpreted this EKG. Course/Dx - Course Course Of Treatment: 84 y/o F with hx atrial fibrillation presents with intermittent palpitations x4 days. Not on anticoagulants. She hasn't had palpitations in years. Patient had an episode of chest discomfort lasting for 2- 3 minutes this morning while she was having palpitations. She does not currently have chest discomfort. Medications reviewed. Recently been taking antibiotics. Patient admits to drinking regular coffee every morning in the last few days. FHx cardiac disease. Physical exam unremarkable. Bloodwork results with no significant abnormalities. An EKG shows normal sinus rhythm 68 BPM, RR 882, OH 171, no STEMI. The patient remains asymptomatic while in the ED. She has no palpitations, chest discomfort, or any other symptoms. No detected arrhythmia today. She needs to go back to drinking decaffeinated coffe. Could be her atrial fibrillation. She needs to follow up with her PCP in 3-5 days. Patient will be discharged home with follow up from her primary care provider in 3-5 days. She was advised to stop consuming caffeine. Patient was instructed to return to Emergency Department for new or worsening symptoms. Patient understands and is agreeable to this plan. - Diagnoses Provider Diagnoses: Palpitations, Adverse reaction to caffeine Discharge ED - Sign-Out/Discharge Documenting (check all that apply): Patient Departure - Discharge Plan Condition: Stable Disposition: HOME Patient Education Materials: Heart Palpitations (ED) Referrals: Kate June MD [Primary Care Provider] - 3 Days Additional Instructions: Stop consuming caffeine. Drink decaffeinated coffee. Please follow up with your primary care provider in 3-5 days. Return to the Emergency Department for changing or worsening symptoms. - Attestation Statements Document Initiated by Scribe: Yes Documenting Scribe: Selena Alexandra Provider For Whom Scribe is Documenting (Include Credential): Vincent Posadas MD Scribe Attestation: Selena Quinonez, scribed for Vincent Posadas MD on 08/18/19 at 1838.
[2019-08-18 10:55] LABS: ABS Basophils 0.1 10^3/ul (0-0.2); ABS Eosinophils 0.1 10^3/ul (0-0.6); ABS Lymphocytes 1.2 10^3/ul (1.0-4.8); ABS Monocytes 0.4 10^3/ul (0-0.8); ABS Neutrophils 3.1 10^3/ul (1.5-7.7); Hematocrit 36 % (35-47); Lymphocyte % 25.1 %; Mean Corpuscular HGB Conc 33 g/dL (31-36); Mean Corpuscular Hemoglobin 27 pg (27-31); Mean Corpuscular Volume 82 fL (80-97); Nucleated Red Blood Cells % 0.1; Platelet Count 293 10^3/uL (150-450); Red Blood Count 4.42 10^6 /uL (3.70-4.87); Red Cell Distribution Width 15 % (10-15); White Blood Count 4.9 10^3/uL (3.5-10.8)
[2019-08-18 11:15] LABS: Albumin 3.9 g/dL (3.2-5.2); Albumin/Globulin Ratio 1.6 (1-3); BUN/Creatinine Ratio 16.4 (8-20); Calcium 9.6 mg/dL (8.6-10.3); EGFR African American 91.7 (>60); EGFR Non-African American 75.8 (>60); Globulin 2.5 g/dL (2-4); Magnesium 1.9 mg/dL (1.9-2.7); Potassium 4.1 mmol/L (3.5-5.0); Total Bilirubin 0.8 mg/dL (0.2-1.0); Total Protein 6.4 g/dL (6.4-8.9)
[2019-08-18 11:47] LABS: TSH (Thyroid Stimulating Horm) 3.4 mcIU/mL (0.34-5.60)
[2019-08-18 11:49] LABS: Free T4 0.89 ng/dL (0.61-1.12)
[2019-08-18 13:28] VITALS: BP 132/74
== END 2019-08-18 13:27 | disposition home or self-care (01) ==
LOC: ED 10:08
DX: R00.2 Palpitations (principal); T43.615A Adverse effect of caffeine, initial encounter; Y92.9 Unspecified place or not applicable; K21.9 Gastro-esophageal reflux disease without esophagitis; Z79.899 Other long term (current) drug therapy; Z88.6 Allergy status to analgesic agent; Z88.4 Allergy status to anesthetic agent; Z88.0 Allergy status to penicillin; Z88.8 Allergy status to other drugs, medicaments and biological substances; Z91.018 Allergy to other foods; Z87.891 Personal history of nicotine dependence
CPT/HCPCS: 36415; 80053; 83605; 83735; 84439; 84443; 84484; 85025; 93005; 99283